=== PATIENT | female | born 1995 | race Caucasian/White ===

== ENCOUNTER 2022-04-12 13:55 | Emergency (ER) | payer OTHER, SELFPAY ==
[2022-04-12 14:06] VITALS: BP 146/84; PULSE 105; RESP 16; TEMP 36.9; O2SAT 98; BMI 26.2
--- NOTE | 2022-04-12 14:46 | ED_ITS ---
HPI - General Time Seen by Provider: 14:46 Date Seen: 04/12/22 Chief complaint: Vaginal Bleeding Stated complaint: 12 wks , bleeding Time Seen by Provider: 04/12/22 14:29 Source: patient and RN notes reviewed Mode of arrival: ambulatory Limitations: no limitations History of Present Illness HPI Narrative: Patient is a 26-year-old female coming in with complaint of vaginal bleeding at approximately 12 weeks of with a twin . She was at her doctor's office earlier today, the bleeding was known then. When she got up from the chair there was blood and the doctor did examiner. She did do a speculum exam and reportedly said there was some blood but the cervix looked fine. Patient had completed amoxicillin yesterday for group B strep and metronidazole today for vaginitis. She has had no vaginal discharge. She has had a little bit of cramping today. She had IUI and use of letrozole for conception. She believes her blood type to be B positive. She reportedly had a transabdominal ultrasound that looked good with her acute care assistant this morning. She had a trickle of blood going down her leg when she was in her doctor's office. Since then she has been passing some clots with going to the bathroom and wiping. Due date is 10/26/2022. She is not experiencing active heavy bleeding. Bleeding just started insidiously at the office. There was no vaginal exam, no recent intercourse. Did use vaginal applicator for the treatment of yeast vaginitis. The urine is what grew group B strep and she was having some dysuria with that which has resolved with treatment with amoxicillin. Patient : Yes Expected Date of Delivery: 10/26/22 Related Data Home Medications Medication Instructions Recorded Confirmed bupropion HCl 300 mg 24 hr tablet, 300 mg PO DAILY 11/16/21 04/12/22 extended release lurasidone 20 mg tablet (Latuda) 20 mg PO QDAY 11/16/21 04/12/22 doxylamine succinate 25 mg tablet 25 mg PO QHS PRN 04/12/22 04/12/22 (Unisom (doxylamine)) vitamin B6-vitamin E-magnesium tab PO 04/12/22 tablet Allergies Allergy/AdvReac Type Severity Reaction Status Date / Time cefdinir Allergy Verified 04/12/22 17:02 Review of Systems Status of ROS: Reports: 10 or more systems reviewed and unremarkable except as noted in History and below PFSH PFSH Medical History Paresthesia Family History Paternal Grandfather Heart disease Maternal Grandfather FH: prostate cancer Diabetes Father High blood pressure Hyperlipidemia Diabetes Social History Smoking Status: Never smoker Exam Const: Vital Signs, click to edit/add: Vital Signs - 24 hr 04/12/22 14:06 04/12/22 16:07 04/12/22 16:08 Temperature 98.4 F Pulse Rate [Pulse Oximeter] 105 H 84 Respiratory Rate 16 16 Blood Pressure [Ri ght Upper Arm] 146/84 H 119/72 Pulse Oximetry 98 100 100 Oxygen Delivery Me thod Room Air Documenting provider has reviewed patient's vital signs: yes Common normals: no apparent distress, average body habitus, oriented x3, no limitations, healthy appearing and alert General appearance: cooperative, comfortable, well kempt and well developed HENMT: Common normals: normocephalic, head/scalp atraumatic and hearing grossly normal bilaterally Head and scalp: normocephalic and atraumatic Eye: Common normals: PERRL, EOMs intact bilaterally, conjunctivae normal and no scleral icterus Conjunctiva: conjunctiva(e) normal Pupil: PERRL Neck & C-Spine: Common normals: full ROM, no lymphadenopathy, supple, no meningeal signs, no JVD and thyroid normal Thyroid: thyroid normal Resp: Common normals: normal respiratory effort, no retractions, no use of accessory muscles and clear to auscultation bilaterally Auscultation: clear to auscultation bilaterally Cardio: Common normals: no JVD, regular rate, regular rhythm, S1 normal heart sound, S2 normal heart sound, no gallops, no clicks and no murmurs Rate: regular rate Rhythm: regular rhythm Heart sounds: S1 normal and S2 normal GI: Common normals: Normal to inspection, nondistended, normoactive bowel sounds present, soft to palpation, non-tender, no hepatosplenomegaly and no masses Palpation: soft and no hepatosplenomegaly : Other: Some dried blood externally but otherwise normal appearing external female genitalia. Dental speculum exam done and see some darkish blood at the introitus. Cervix is visualized, has bluish discoloration of . See a small little about pea size clot at the cervical os. No gross active bleeding. There is scant amount of darker blood in the vault but no pooling of blood. See no discharge otherwise. Neuro: Common normals: oriented x3 Sensorium/orientation: alert Meningeal signs: no meningeal signs Psych: Appearance: well kempt Course Course Hospital Course: We will obtain a limited OB ultrasound again. Obtain basic lab work. Patient will review and make sure blood type is indeed Rh positive. Reevaluation(s) Reevaluation #1: Patient did request Zofran for nausea, has been taking it for this . Did give her 4 mg IV Zofran. Reviewed with her that her ultrasound is showing good findings as far as the twins. There is no reason for bleeding that is visualized. Reviewed labs. Time: 17:08 Consultations Consultation #1: 7 minute conversation with patient's obstetrian at [facility] ([phone]). Had transabdominal US, bleeding started after that. No exams or treatments prior to the bleeding. Did do speculum exam after the bleeding discovered and cervix appeared to have bleeding coming through but not visible source. No risk factors for cervical incompetence other than the twin that she is aware of. Cervix appeared fine there. Likely going to need just expectant management and recommended rest in the interim. Time: 15:47 Vital Signs Vital signs: Initial Vital Signs Temperature 98.4 F 04/12/22 14:06 Temperature Source Temporal Artery Scan 04/12/22 14:06 Pulse Rate 105 H 04/12/22 14:06 Pulse Rhythm 04/12/22 14:06 Pulse Strength 3+ Normal 04/12/22 14:06 Respiratory Rate 16 04/12/22 14:06 Blood Pressure 146/84 H 04/12/22 14:06 Blood Pressure Mean 104 04/12/22 14:06 Pulse Oximetry 98 04/12/22 14:06 Oxygen Delivery Method 04/12/22 14:06 Vital Signs Temperature 98.4 F 04/12/22 14:06 Pulse Rate 105 H 04/12/22 14:06 Respiratory Rate 16 04/12/22 14:06 Blood Pressure 146/84 H 04/12/22 14:06 Pulse Oximetry 98 04/12/22 14:06 Oxygen Delivery Method 04/12/22 14:06 Temperature 98.4 F 04/12/22 14:06 Pulse Rate 84 04/12/22 16:07 Respiratory Rate 16 04/12/22 16:07 Blood Pressure 119/72 04/12/22 16:07 Pulse Oximetry 100 04/12/22 16:08 Oxygen Delivery Method 04/12/22 14:06 MDM - OB/Uterine Contractions Lab Data Attestation: I reviewed the patient's lab results. Labs: Lab Results 04/12/22 04/12/22 Range/Units 15:26 15:26 WBC 12.19 H (4.50-11.00) K/uL RBC 4.58 (4.00-5.20) m/uL Hgb 13.9 (12.0-16.0) gm/dL Hct 40.1 (33.0-51.0) % MCV 88 (80-100) fL MCH 30 (26-34) pg MCHC 35 (32-36) gm/dL RDW Coeff of Bertha 12.4 (11.5-15.5) % Plt Count 366 (140-440) K/uL Neut % (Auto) 79.3 H (42.0-72.0) % Lymph % (Auto) 16.1 L (20-44) % [place] % (Auto) 4.0 (0.0-11.0) % Eos % (Auto) 0.2 (0.0-7.0) % Baso % (Auto) 0.2 (0.0-3.0) % Neut # (Auto) 9.70 H (1.7-7.0) K/uL Lymph # (Auto) 2.00 (0.90-2.90) K/uL [place] # (Auto) 0.50 (0.00-0.90) K/UL Eos # (Auto) 0.00 (0.00-0.50) K/uL Baso # (Auto) 0.00 (0.00-0.30) K/uL Sodium 135 (135-149) mmol/L Potassium 3.8 (3.6-5.1) mmol/L Chloride 107 (96-114) mmol/L Carbon Dioxide 20 (20-32) mmol/L BUN 4 L (5-24) mg/dL Creatinine 0.5 (0.5-1.5) mg/dL Estimated Creat Clear 164.35 Estimated GFR 132 ml/min Glucose 71 (60-115) mg/dL Calcium 9.1 (8.4-10.6) mg/dL HCG, Quant 64721.00 mIU/mL Imaging Data OB ultrasound: Attestation: I have reviewed the pertinent imaging results. My impression: Did visualize her ultrasound images. Will await Radiology over-read. Radiologist's impression: Patient: CORDELIA RAY Facility:?[facility] Patient ID:?[id number] Site Patient ID:?[id number]. Site :?[id number] Study:? OB Pelvis -04/12/2022 3:31:00 PM Ordering Physician:Karen Carreon Final Report: INDICATION: Bleeding with twin gestation. TECHNIQUE: Ultrasound OB pelvis transabdominal and transvaginal. Real-time chawla-scale imaging of the pelvis was performed. COMPARISON: None. FINDINGS: Dichorionic diamniotic twin intrauterine gestation. Embryo A: The embryo demonstrates a regular cardiac rate measuring 169 beats per minute. The embryo`s crown rump length measurement of 5.1 cm corresponds to a gestational age of 11 weeks 6 days with a sonographic due date of 10/26/2022. Embryo B: The embryo demonstrates a regular cardiac rate measuring 173 beats per minute. The embryo`s crown rump length measurement of 5.2 cm corresponds to a gestational age of 11 weeks 6 days with a sonographic due date of 10/26/2022. Normal yolk sac. There is no sign of subchorionic hemorrhage. Normal right ovary. Nonvisualized left ovary. There are no suspicious fluid collections noted in the cul-de-sac. Cervical length: 3.2 cm. IMPRESSION: Live dichorionic diamniotic twin intrauterine gestation, with both fetuses measuring 11 weeks 6 days. No abnormalities seen. Dictated by Saeed Wilson MD @ 04/12/2022 4:30:14 PM (Electronic Signature) Critical Care Time Critical Care Time Critical Care Time: No Discharge Plan Discharge Clinical Impression: Vaginal bleeding in , Twin Condition: Stable Instructions: Threatened Miscarriage (ED) Additional Instructions: Information on threatened miscarriages provided. However, fetus is look quite good on the ultrasound done here. It is recommended that you go home and rest, nothing in the vagina until further advised by your acute care assistant. Recommend calling the acute care assistant office tomorrow and updating them on your symptoms, let them know if you are having ongoing bleeding. If you are still spotting and bleeding tomorrow, would recommend having re-evaluation with them. If you start having brisk her heavy bleeding as outlined in the handout, do need to seek emergent re-evaluation. Activity Level: No strenuous activity Activity Detail: Recommend resting until all bleeding has stopped. Prescriptions: No Action bupropion HCl 300 mg tablet extended release 24 hr 300 mg PO DAILY Label Comments: TAKE 1 TABLET EVERY DAY BY ORAL ROUTE IN THE MORNING. Latuda 20 mg tablet 20 mg PO QDAY Label Comments: TAKE 1 TABLET BY MOUTH DAILY WITH A MEAL vitamin B6-vitamin E-magnesium Tablet PO Unisom (doxylamine) 25 mg tablet 25 mg PO QHS PRN Follow Up/Referrals: Provider,Not a Local [Primary Care Provider] - Stand Alone Forms: [facility] Info Instructions
--- NOTE | 2022-04-12 14:47 | CRLHL7_ITS ---
For Patients: As a result of the Cures Act, medical imaging exams and procedure reports are released immediately into your electronic medical record. You may view this report before your referring provider. If you have questions, please contact your health care provider. INDICATION: Bleeding with twin gestation. TECHNIQUE: Ultrasound OB pelvis transabdominal and transvaginal. Real-time chawla-scale imaging of the pelvis was performed. COMPARISON: None. FINDINGS: Dichorionic diamniotic twin intrauterine gestation. Embryo A: The embryo demonstrates a regular cardiac rate measuring 169 beats per minute. The embryo`s crown rump length measurement of 5.1 cm corresponds to a gestational age of 11 weeks 6 days with a sonographic due date of 10/26/2022. Embryo B: The embryo demonstrates a regular cardiac rate measuring 173 beats per minute. The embryo`s crown rump length measurement of 5.2 cm corresponds to a gestational age of 11 weeks 6 days with a sonographic due date of 10/26/2022. Normal yolk sac. There is no sign of subchorionic hemorrhage. Normal right ovary. Nonvisualized left ovary. There are no suspicious fluid collections noted in the cul-de-sac. Cervical length: 3.2 cm. IMPRESSION: Live dichorionic diamniotic twin intrauterine gestation, with both fetuses measuring 11 weeks 6 days. No abnormalities seen. Dictated by Saeed Wilson MD @ 04/12/2022 4:30:14 PM (Electronically Signed)
--- NOTE | 2022-04-12 15:20 | ED.NURSE ---
patient returned from US and placed on warm blanket.
--- NOTE | 2022-04-12 15:33 | ED.NURSE ---
started saline lock #20 jelco able to draw the labs from the site and sent to lab.
[2022-04-12 15:44] LABS: Basophils Percent Auto 0.2 % (0.0-3.0); Eosinophils Percent Auto 0.2 % (0.0-7.0); Hematocrit 40.1 % (33.0-51.0); Hemoglobin* 13.9 gm/dL (12.0-16.0); Immature Granulocytes Pct Auto 0.2 %; Lymphocytes Percent Auto 16.1 % (20-44); Mean Corpuscular HGB Conc 35 gm/dL (32-36); Mean Corpuscular Hemoglobin 30 pg (26-34); Mean Corpuscular Volume 88 fL (80-100); Neutrophils Percent Auto 79.3 % (42.0-72.0); Platelet Count* 366 K/uL (140-440); RDW Coefficient of Variation % 12.4 % (11.5-15.5); Red Blood Count 4.58 m/uL (4.00-5.20); White Blood Count* 12.19 K/uL (4.50-11.00)
[2022-04-12 15:47] LABS: Slide Review Reflex No
[2022-04-12 15:57] LABS: Chloride* 107 mmol/L (96-114); Potassium* 3.8 mmol/L (3.6-5.1); Sodium* 135 mmol/L (135-149)
[2022-04-12 16:00] LABS: Blood Urea Nitrogen* 4 mg/dL (5-24); Carbon Dioxide* 20 mmol/L (20-32); Creatinine* 0.5 mg/dL (0.5-1.5); Est. Creatinine Clearance* 164.35; Estimated Glomerular Filt Rate 132 ml/min; Glucose* 71 mg/dL (60-115)
[2022-04-12 16:01] LABS: Calcium* 9.1 mg/dL (8.4-10.6)
[2022-04-12 16:07] VITALS: BP 119/72; PULSE 84; RESP 16; O2SAT 100
[2022-04-12 16:08] VITALS: O2SAT 100
[2022-04-12 16:20] VITALS: BP 110/74; PULSE 92; RESP 16; O2SAT 99
[2022-04-12] MEDS: ONDANSETRON 2 MG/ML inj 4 MG IVP (17:08)
== END 2022-04-12 17:31 | disposition home or self-care (01) ==
PROVIDERS: Emergency Provider Family Medicine
DX: O46.91 Antepartum hemorrhage, unspecified, first trimester (principal); O30.001 Twin pregnancy, unspecified number of placenta and unspecified number of amniotic sacs, first trimester; Z3A.12 12 weeks gestation of pregnancy
CPT/HCPCS: 36415; 76801; 76802; 80048; 84702; 85025; 94761; 96374; 99284; J2405

== ENCOUNTER 2023-05-17 05:41 | Emergency (ER) | payer OTHER, SELFPAY ==
[2023-05-17 05:46] VITALS: BP 124/88; PULSE 107; RESP 20; TEMP 36; O2SAT 97; BMI 24.9
--- NOTE | 2023-05-17 06:13 | ED.GENADULT ---
HPI - General Adult General Chief complaint: Shortness of Breath/Dyspnea Stated complaint: shortness of breath Time Seen by Provider: 05/17/23 05:57 Source: patient Mode of arrival: ambulatory Limitations: no limitations History of Present Illness HPI narrative: 27-year-old female presents the emergency department with 36-48 hour history of initially body aches and fever. Fever as high as 102 at home. Nonproductive cough. His shortness of breath is worsening over the past 24 hours, can swallow but feels like it can be difficult to get a deep breath. Throat feels a little swollen. Is having nausea has had a couple episodes of vomiting. No true abdominal pain no. No diarrhea. No trauma or injury. Last took Tylenol about 3 hours prior to presentation, 1000 mg. Last took ibuprofen about 8 hours prior to presentation, 400 mg. Not tolerating solid foods due to the nausea. Has not tried any anti nausea medication. No known sick contacts, no pertinent travel. No dyspnea on exertion or cardiac symptoms. Past medical history notable for depression. Reports use of Wellbutrin and Latuda. Allergy to cefdinir which caused hives per her report. Nonsmoker. ROS notable for the HEENT and GI symptoms as described above. Related Data Home Medications Medication Instructions Recorded Confirmed bupropion HCl 300 mg 24 hr tablet, 300 mg PO DAILY 11/16/21 05/17/23 extended release lurasidone 20 mg tablet (Latuda) 20 mg PO QDAY 11/16/21 05/17/23 Allergies Allergy/AdvReac Type Severity Reaction Status Date / Time cefdinir Allergy Verified 05/17/23 05:46 PFSH PFS Medical History Paresthesia ?R20.2 - Paresthesia of skin (ICD-10) Family History Paternal Grandfather Heart disease Maternal Grandfather FH: prostate cancer Diabetes Father High blood pressure Hyperlipidemia Diabetes Social History Smoking Status: Never smoker Exam Const: Vital Signs, click to edit/add: Vital Signs - 24 hr 05/17/23 05:46 Temperature 96.8 F L Pulse Rate [Pulse Oximeter] 107 H Respiratory Rate 20 Blood Pressure [Ri ght Upper Arm] 124/88 Pulse Oximetry 97 Oxygen Delivery Me thod Room Air Documenting provider has reviewed patient's vital signs: yes Common normals: alert General appearance: cooperative, comfortable and well kempt Other: Great historian, cooperative and friendly. HENMT: Common normals: TM's normal bilaterally Tympanic membrane: TM's normal bilaterally Other: Oropharynx with acyanotic lips. Moist mucous membranes. Tonsillar pillars with a moderate amount of erythema. No swelling to the uvula, tongue or soft palate. No exudate but posterior pharynx does appear quite irritated. She is obviously breathing very comfortably and is swallowing her own secretions with no difficulty. No asymmetry. Eye: Common normals: conjunctivae normal General eye: normal appearance of both eyes Conjunctiva: conjunctiva(e) normal Neck & C-Spine: Other: Moderate anterior cervical and submandibular lymphadenopathy with good range of motion and no meningeal signs. Resp: Common normals: normal respiratory effort, no use of accessory muscles and clear to auscultation bilaterally Effort & inspection: able to speak in complete sentences Auscultation: clear to auscultation bilaterally Cardio: Common normals: regular rate, regular rhythm, S1 normal heart sound, S2 normal heart sound and no murmurs Rate: regular rate Rhythm: regular rhythm Heart sounds: S1 normal and S2 normal Extremity: Common normals: normal capillary refill and no pedal edema Neuro: Sensorium/orientation: alert Speech: speech normal Psych: Appearance: well kempt Attitude: engaged Activity/motor behavior: appropriate eye contact Insight: insight good Judgement: judgment good Skin: Common normals: no rashes or lesions noted General skin exam: no rashes or lesions noted Course Course ED Course: Influenza like illness with sore throat, body aches, nausea. We are seeing lots of influenza B locally. Swabs are pending for influenza, RSV, COVID and strep. Does not appear clinically dehydrated at this point. Would like to do a trial of oral Zofran and Toradol and then see if she can tolerate liquids after that. Await viral swabs. Reevaluation(s) Time of Reevaluation #1: 07:11 Reevaluation #1: Discussed lab findings with patient. She is feeling much better after the Zofran and has tolerated a glass of water here in the ED. The Toradol seems to be helping as well. We discussed symptom management. Will prescribed Toradol and Zofran for her to have at home. Likely influenza even though the swabs are negative, discussed the limitations of the swabs with her. We decided against Tamiflu even if she were positive therefore further testing will not be beneficial. Since she is able to tolerate liquids with the Zofran, I am confident that she can prevent dehydration and care for herself appropriately at home. Counseled on Tylenol as well for symptom control and alarm symptoms. She verbalizes understanding and agreement, see discharge instructions. Vital Signs Vital signs: Initial Vital Signs Temperature 96.8 F L 05/17/23 05:46 Temperature Source Temporal Artery Scan 05/17/23 05:46 Pulse Rate 107 H 05/17/23 05:46 Pulse Strength 3+ Normal 05/17/23 05:46 Respiratory Rate 20 05/17/23 05:46 Blood Pressure 124/88 05/17/23 05:46 Blood Pressure Mean 100 05/17/23 05:46 Pulse Oximetry 97 05/17/23 05:46 Oxygen Delivery Method Room Air 05/17/23 05:46 Vital Signs Temperature 96.8 F L 05/17/23 05:46 Pulse Rate 107 H 05/17/23 05:46 Respiratory Rate 20 05/17/23 05:46 Blood Pressure 124/88 05/17/23 05:46 Pulse Oximetry 97 05/17/23 05:46 Oxygen Delivery Method Room Air 05/17/23 05:46 Temperature 96.8 F L 05/17/23 05:46 Pulse Rate 107 H 05/17/23 05:46 Respiratory Rate 20 05/17/23 05:46 Blood Pressure 124/88 05/17/23 05:46 Pulse Oximetry 97 05/17/23 05:46 Oxygen Delivery Method Room Air 05/17/23 05:46 Medications Administered Medications: Discontinued Medications Generic Name Dose Route Start Last Admin Trade Name Freq PRN Reason Stop Dose Admin Ketorolac Tromethamine 10 mg 05/17/23 06:12 05/17/23 06:51 Ketorolac 10 Mg Tablet PO 05/17/23 06:13 10 mg ONCE ONE Administration Ondansetron HCl 4 mg 05/17/23 06:12 05/17/23 06:17 Ondansetron Odt 4 Mg Tab PO 05/17/23 06:13 4 mg ONCE ONE Administration Medical Decision Making Lab Data Lab results reviewed: Yes I reviewed the patient's lab results Lab results narrative: Labs negative, limitations discussed with patient Labs: Lab Results 05/17/23 Range/Units 05:53 SARS-CoV-2 (PCR) Negative SARS-CoV-2 (Negative) Influenza Type A (PCR) Negative PCR FLU A (Negative) Influenza Type B (PCR) Negative PCR FLU B (Negative) RSV (PCR) Negative PCR RSV (Negative) Group A Strep DNA NOT DETECTED (Not Detectd) Discharge Plan Discharge Clinical Impression: Influenza-like illness Patient Disposition: Home, Self-Care Condition: Improved Instructions: Influenza (DC) Additional Instructions: As we discussed, your swabs are negative for strep and influenza. The strep test is quite accurate but the influenza can give false negatives. We are still seeing quite a bit of influenza B circulating in the community. This is most likely the culprit of your symptoms but could be another similar virus. The treatment would be the same either way. I recommend Tylenol 1000 mg every 6 hours as needed. I will give a prescription for Toradol which is anti-inflammatory medicine that your given here in the ED as well. Take 1 tablet every 6 hours, your next eligible dose is about 12 30. You could repeat your Tylenol at about 8:00 a.m.. I will also give a prescription for anti nausea medicine, Zofran also known as ondansetron. You would be due for another dose of this as early as noon. It may be taken up to every 6 hours. Definitely take it at least every 8 hours for the next 24 hours, then decrease to as needed. Push fluids, solid foods will come within a few days. If you have severe shortness of breath, chest pain, are unable to hold down any liquids for over 24 hours even with medications, you should come back to the emergency room. Activity Level: Activity as Tolerated Discharge Diet: Regular Prescriptions: No Action bupropion HCl 300 mg tablet extended release 24 hr 300 mg PO DAILY Patient Comments: TAKE 1 TABLET EVERY DAY BY ORAL ROUTE IN THE MORNING. Latuda 20 mg tablet 20 mg PO QDAY Patient Comments: TAKE 1 TABLET BY MOUTH DAILY WITH A MEAL Follow Up/Referrals: Provider,Not a Local [Primary Care Provider] - Stand Alone Forms: [employer] Info Instructions
[2023-05-17] MEDS: ONDANSETRON ODT 4 MG TAB PO (06:17)
[2023-05-17 06:27] LABS: Strep A DNA Probe* NOT DETECTED (Not Detectd)
[2023-05-17 06:41] LABS: PCR FLU A Negative PCR FLU A (Negative); PCR FLU B Negative PCR FLU B (Negative); PCR RSV Negative PCR RSV (Negative); SARS PCR* Negative SARS-CoV-2 (Negative)
[2023-05-17] MEDS: KETOROLAC 10 MG TABLET PO (06:51)
== END 2023-05-17 07:21 | disposition home or self-care (01) ==
PROVIDERS: Emergency Provider Family Medicine
DX: J10.1 Influenza due to other identified influenza virus with other respiratory manifestations (principal)
CPT/HCPCS: 87631; 87651; 99283; A9270

== ENCOUNTER 2024-01-31 03:51 | Emergency (ER) | payer OTHER, SELFPAY ==
[2024-01-31 03:57] VITALS: BP 122/87; PULSE 63; RESP 16; TEMP 36.1; O2SAT 100; BMI 24.7
--- NOTE | 2024-01-31 04:04 | ED_ITS ---
HPI - General Chief complaint: Vaginal Bleeding Stated complaint: 4 weeks , cramping Time Seen by Provider: 01/31/24 04:02 History of Present Illness HPI Narrative: Patient is a 28-year-old woman who has been 3 times. She has a single it and a set of twins and recently found out that she is approximately 4 weeks . She presents tonight with spontaneous bleeding from her vagina. She is bleeding proximally pad every 2-3 hours. She is not passing any clots and has not passed any solid material. She has crampy lower abdominal pain but no fevers no chills no night sweats no cough no change in her bowel or bladder. No other complaints. Pain is 410. Related Data Home Medications ?Medication ?Instructions ?Recorded ?Confirmed bupropion HCl 300 mg 24 hr tablet, 300 mg PO DAILY 11/16/21 05/17/23 extended release lurasidone 20 mg tablet (Latuda) 20 mg PO QDAY 11/16/21 05/17/23 Allergies Allergy/AdvReac Type Severity Reaction Status Date / Time cefdinir Allergy Verified 05/17/23 05:46 Review of Systems Status of ROS: Reports: 10 or more systems reviewed and unremarkable except as noted in History and below PFSH PFS Medical History Paresthesia ?R20.2 - Paresthesia of skin (ICD-10) Family History Paternal Grandfather Heart disease Maternal Grandfather FH: prostate cancer Diabetes Father High blood pressure Hyperlipidemia Diabetes Social History Smoking Status: Never smoker Do you use any of these nicotine containing products: None How often do you have a drink containing alcohol: never AUDIT-C Alcohol total score: 0 Non-prescribed substance use: denies use Exam Narrative: Exam Narrative: EXAM GENERAL: Patient appears comfortable and well. EYES: No scleral icterus. ENT: Tympanic membranes and oropharynx normal. THYROID: no thyroid nodules or thyromegaly. LYMPH: No supraclavicular or cervical lymphadenopathy. SKIN: Visible skin seen during exam normal or with benign process only. EXT: No dependent lower extremity pedal edema. HEART: Regular rate and rhythm with no murmurs, rubs, or gallops. LUNGS: Clear to auscultation bilaterally with no crackles or wheezes. ABD: Soft, non tender, non distended. PSYCH: Good eye contact, speech is not pressured. Const: Vital Signs, click to edit/add: Vital Signs - 24 hr 01/31/24 03:57 Temperature 97 F L Pulse Rate [Pulse Oximeter] 63 Respiratory Rate 16 Blood Pressure [Ri ght Upper Arm] 122/87 Pulse Oximetry 100 Oxygen Delivery Me thod Room Air Course Course ED Course: Patient seen and examined. CBC basic metabolic panel ABO Rh type and quantitative hCG is pending. Vital Signs Vital signs: Initial Vital Signs Temperature 97 F L 01/31/24 03:57 Temperature Source Temporal Artery Scan 01/31/24 03:57 Pulse Rate 63 01/31/24 03:57 Respiratory Rate 16 01/31/24 03:57 Blood Pressure 122/87 01/31/24 03:57 Blood Pressure Mean 98 01/31/24 03:57 Blood Pressure Position Supine 01/31/24 03:57 Pulse Oximetry 100 01/31/24 03:57 Oxygen Delivery Method Room Air 01/31/24 03:57 Vital Signs Temperature 97 F L 01/31/24 03:57 Pulse Rate 63 01/31/24 03:57 Respiratory Rate 16 01/31/24 03:57 Blood Pressure 122/87 01/31/24 03:57 Pulse Oximetry 100 01/31/24 03:57 Oxygen Delivery Method Room Air 01/31/24 03:57 Temperature 97 F L 01/31/24 03:57 Pulse Rate 63 01/31/24 03:57 Respiratory Rate 16 01/31/24 03:57 Blood Pressure 122/87 01/31/24 03:57 Pulse Oximetry 100 01/31/24 03:57 Oxygen Delivery Method Room Air 01/31/24 03:57 MDM - OB/Uterine Contractions MDM Narrative Medical decision making narrative: Patient is a 28-year-old 3 para 3 woman with set of twins who comes in approximately 4 weeks with vaginal bleeding. She is bleeding approximately a pad every 3-4 hours. Quantitative hCG i 8.3. CBC electrolytes stable. She is B-positive blood type. She is hemodynamically stable with a normal exam. We did discuss ultrasound but I do not believe a given its timing would be appropriate to order an ultrasound overnight tonight. I did recommend outpatient follow-up. She will continue current care report any fevers or worsening abdominal pain in the interim. Lab Data Labs: Lab Results 01/31/24 Range/Units 04:14 WBC 8.25 (4.50-11.00) K/uL RBC 4.65 (4.00-5.20) m/uL Hgb 13.7 (12.0-16.0) gm/dL Hct 40.7 (33.0-51.0) % MCV 88 (80-100) fL MCH 30 (26-34) pg MCHC 34 (32-36) gm/dL RDW Coeff of Bertha 11.7 (11.5-15.5) % Plt Count 352 (140-440) K/uL Neut % (Auto) 65.7 (42.0-72.0) % Lymph % (Auto) 25.7 (20-44) % [place] % (Auto) 6.2 (0.0-11.0) % Eos % (Auto) 1.2 (0.0-7.0) % Baso % (Auto) 0.5 (0.0-3.0) % Neut # (Auto) 5.42 (1.7-7.0) K/uL Lymph # (Auto) 2.12 (0.90-2.90) K/uL [place] # (Auto) 0.50 (0.00-0.90) K/UL Eos # (Auto) 0.10 (0.00-0.50) K/uL Baso # (Auto) 0.04 (0.00-0.30) K/uL Abs Immat Gran (auto) 0.06 (0.00-0.30) K/uL Imm/Tot Granulo (auto) 0.7 % Sodium 137 (135-149) mmol/L Potassium 4.1 (3.6-5.1) mmol/L Chloride 106 (96-114) mmol/L Carbon Dioxide 24 (20-32) mmol/L Anion Gap 7 (7-15) mEq/L BUN 12 (5-24) mg/dL Creatinine 0.8 (0.5-1.5) mg/dL Estimated Creat Clear 100.90 Estimated GFR 102 ml/min Glucose 97 (60-115) mg/dL Calcium 8.9 (8.4-10.6) mg/dL HCG, Quant 8.30 mIU/mL Blood Type B Positive Discharge Plan Discharge Clinical Impression: Vaginal bleeding before 22 weeks gestation Additional Instructions: Tylenol Warm packs Monitor bleeding for worsening Monitor for worsening abdominal pain Follow-up with your doctor next 2-3 days. Activity Level: No Restrictions Discharge Diet: Regular Prescriptions: No Action bupropion HCl 300 mg tablet extended release 24 hr 300 mg PO DAILY Patient Comments: TAKE 1 TABLET EVERY DAY BY ORAL ROUTE IN THE MORNING. Latuda 20 mg tablet 20 mg PO QDAY Patient Comments: TAKE 1 TABLET BY MOUTH DAILY WITH A MEAL Follow Up/Referrals: Provider,Not a Local [Primary Care Provider] -
--- OUTSIDE RECORDS SUMMARY | 2024-01-31 04:11 | XMS_ITS | Encounter Summary ---
Author Organization [facility] Address [address] [place] [address] Care Team Providers Care Grocery Manager Name Role Phone No Primary/Referring, Phy Primary Care Provider Unavailable Encounter Details Date Type Department Care Team (Latest Contact Info) Description 11/05/1996 Office Visit Shaun Meeks MD [address] [place] [address] Social History Tobacco Use Types Packs/Day Years Used Date Smoking Tobacco: Never Assessed Sex and Gender Information Value Date Recorded Sex Assigned at Not on file Gender Identity Not on file Sexual Orientation Not on file documented as of this encounter Progress Notes * Shaun Meeks - 11/05/1996 12:00 AM CDTS: Isabela is a 23 month female presenting with decrease in energy and borderline fever recently. Medications none. Allergies none. O: Physical Exam: General--No apparent distress. Normal level of activity. HEENT: Head--atraumatic, normocephalic. Eyes--PERRL, EOM's intact, conjunctiva clear bilaterally. Ears--TM's clear, LR intact bilaterally. Nose--clear mucous discharge. Pharynx--benign. Lymphs--shotty anterior cervical. Neck--supple. Chest--clear. Abdomen--soft, benign. A: Viral illness P: No further treatment indicated at present. cc: documented in this encounter Plan of Treatment Not on file documented as of this encounter Visit Diagnoses Not on filedocumented in this encounter Additional Health Concerns Infection Onset Date Last Indicated Resolved Time R/O COVID19 02/17/2020 02/17/2020 02/19/2020 7:53 AM JOURNEYMAN PLUMBER documented as of this encounter Care Teams Grocery Manager Relationship Specialty Start Date End Date No Primary/Referring, Phy PCP - General 03/25/20 documented as of this encounter
--- OUTSIDE RECORDS SUMMARY | 2024-01-31 04:11 | XMS_ITS | Encounter Summary ---
Author Organization [facility] Address [address] [place] [address] Care Team Providers Care Fabric Pattern Grader Name Role Phone No Primary/Referring, Phy Primary Care Provider Unavailable Encounter Details Date Type Department Care Team (Latest Contact Info) Description 12/15/1996 Office Visit Shaun Meeks MD [address] [place], [place] [id number] Social History Tobacco Use Types Packs/Day Years Used Date Smoking Tobacco: Never Assessed Sex and Gender Information Value Date Recorded Sex Assigned at Not on file Gender Identity Not on file Sexual Orientation Not on file documented as of this encounter Progress Notes * Shaun Meeks - 12/15/1996 12:00 AM CDTS: This is a 1-year-old female presenting with one day complaint of waking at night associated with earache and fever to 100. Patient has a history of myringotomy in tubes in the past. She has experienced a one week history of clear watery nasal discharge and slight cough in the mornings. Other family members are asymptomatic. Mother also noted that Isabela has developed a faint oval, lightly desquamated lesion on her left side. She uses [employer] soap. Medications: Tylenol Cold plus Benadryl for a mosquito bite. Allergies: None noted. O: Physical Exam: General--No apparent distress. HEENT: Head--atraumatic, normocephalic. Eyes--PERRL, EOMs intact, conjunctiva clear bilaterally. Ears--Right TM clear, light reflex intact. Left TM dull, erythematous. Nose--clear. Pharynx--benign. Lymph--shotty anterior cervical. Neck--supple. Chest--clear. Abdomen--soft, benign. A: Left otitis media, upper respiratory infection. P: Rx: Augmentin 1 tsp po q 12 for a ten day course. Reassess three to four weeks. Topical 1% hydrocortisone to be applied on very faint oval macular lesion on the trunk. cc: documented in this encounter Plan of Treatment Not on file documented as of this encounter Visit Diagnoses Not on filedocumented in this encounter Additional Health Concerns Infection Onset Date Last Indicated Resolved Time R/O COVID19 02/17/2020 02/17/2020 02/19/2020 7:53 AM VERIFICATION ENGINEER documented as of this encounter Care Teams Fabric Pattern Grader Relationship Specialty Start Date End Date No Primary/Referring, Phy PCP - General 03/25/20 documented as of this encounter
--- OUTSIDE RECORDS SUMMARY | 2024-01-31 04:11 | XMS_ITS | Encounter Summary ---
Author Organization [facility] Address [address] [place] [address] Care Team Providers Care Packaging Sales Consultant Name Role Phone No Primary/Referring, Phy Primary Care Provider Unavailable Encounter Details Date Type Department Care Team (Latest Contact Info) Description 06/22/1996 Office Visit Deborah Rivera MD [address] [place] [address] Social History Tobacco Use Types Packs/Day Years Used Date Smoking Tobacco: Never Assessed Sex and Gender Information Value Date Recorded Sex Assigned at Not on file Gender Identity Not on file Sexual Orientation Not on file documented as of this encounter Progress Notes * Deborah Lay - 06/22/1996 12:00 AM CDTS: Isabela is here because of a fever that began last night. She has had mild cold symptoms. No other problems. O: Right TM is normal. Left TM is red and PE tube appears to be out. Heart and lungs are clear. A: Otitis Media P: Augmentin 200mg 3/4 tsp. bid X 10 days. Recheck back in between 2-3 weeks. Briefly discussed whether or not to replace PE tubes at this point and we will wait to see how this infection clears. Might elect to follow closely at this point rather than replacing the tubes. cc: documented in this encounter Plan of Treatment Not on file documented as of this encounter Visit Diagnoses Not on filedocumented in this encounter Additional Health Concerns Infection Onset Date Last Indicated Resolved Time R/O COVID19 02/17/2020 02/17/2020 02/19/2020 7:53 AM BATTERY WRECKER OPERATOR documented as of this encounter Care Teams Packaging Sales Consultant Relationship Specialty Start Date End Date No Primary/Referring, Phy PCP - General 03/25/20 documented as of this encounter
--- OUTSIDE RECORDS SUMMARY | 2024-01-31 04:11 | XMS_ITS | Encounter Summary ---
Author Organization [facility] Address [address] [place] [address] Care Team Providers Care Pressure Vessel Inspector Name Role Phone No Primary/Referring, Phy Primary Care Provider Unavailable Encounter Details Date Type Department Care Team (Latest Contact Info) Description 02/22/1997 Office Visit Deborah Rivera MD [address] [place] [address] Social History Tobacco Use Types Packs/Day Years Used Date Smoking Tobacco: Never Assessed Sex and Gender Information Value Date Recorded Sex Assigned at Not on file Gender Identity Not on file Sexual Orientation Not on file documented as of this encounter Progress Notes * Deborah Lay - 02/22/1997 12:00 AM CSTS: Isabela is here to have her ear rechecked. She has completed her medication. She had some trouble with diaper rash while taking the Augmentin. Her parent's report things have been going very well otherwise. O: Alert, active, not-ill appearing. The right TM continues normal. The left TM shows a very small crescent of fluid otherwise is normal in color. A: Resolving serous otitis P: At this point, will d/c the antibiotics. Will continue to follow routinely. cc: OR ENERGY TRADER documented in this encounter Plan of Treatment Not on file documented as of this encounter Visit Diagnoses Not on filedocumented in this encounter Additional Health Concerns Infection Onset Date Last Indicated Resolved Time R/O COVID19 02/17/2020 02/17/2020 02/19/2020 7:53 AM SENIOR ENERGY TRADER documented as of this encounter Care Teams Pressure Vessel Inspector Relationship Specialty Start Date End Date No Primary/Referring, Charliy PCP - General 03/25/20 documented as of this encounter
--- OUTSIDE RECORDS SUMMARY | 2024-01-31 04:11 | XMS_ITS | Encounter Summary ---
Author Organization [facility] Address [address] [place] [address] Care Team Providers Care Loom Fixer Name Role Phone No Primary/Referring, Phy Primary Care Provider Unavailable Encounter Details Date Type Department Care Team (Latest Contact Info) Description 09/09/1996 Office Visit Deborah Rivera MD [address] [facility] [place] [address] Social History Tobacco Use Types Packs/Day Years Used Date Smoking Tobacco: Never Assessed Sex and Gender Information Value Date Recorded Sex Assigned at Not on file Gender Identity Not on file Sexual Orientation Not on file documented as of this encounter Progress Notes * Deborah Lay - 09/09/1996 12:00 AM CDTS: Isabela is here because of a fever last night of approximately 103. She has had mild cold symptoms in the last couple of days but no fever before last night. Other family members have also been ill with a mild illness. No other exposures. O: Both tympanic membranes are normal. Throat is slightly red, no exudate. Some nasal congestion. Lungs clear. A: Viral syndrome. P: Symptomatic therapy. Recheck as needed. cc: documented in this encounter Plan of Treatment Not on file documented as of this encounter Visit Diagnoses Not on filedocumented in this encounter Additional Health Concerns Infection Onset Date Last Indicated Resolved Time R/O COVID19 02/17/2020 02/17/2020 02/19/2020 7:53 AM GRINDER OUTSIDE DIAMETER documented as of this encounter Care Teams Loom Fixer Relationship Specialty Start Date End Date No Primary/Referring, Phy PCP - General 03/25/20 documented as of this encounter
--- OUTSIDE RECORDS SUMMARY | 2024-01-31 04:11 | XMS_ITS | Encounter Summary ---
Author Organization [facility] Address [address] [place] [address] Care Team Providers Care Biotechnologist Name Role Phone No Primary/Referring, Phy Primary Care Provider Unavailable Encounter Details Date Type Department Care Team (Latest Contact Info) Description 12/13/1995 Orders Only Shaun Meeks MD [address] [place], [place] [id number] Social History Tobacco Use Types Packs/Day Years Used Date Smoking Tobacco: Never Assessed Sex and Gender Information Value Date Recorded Sex Assigned at Not on file Gender Identity Not on file Sexual Orientation Not on file documented as of this encounter Plan of Treatment Not on file documented as of this encounter Visit Diagnoses Not on filedocumented in this encounter Additional Health Concerns Infection Onset Date Last Indicated Resolved Time R/O COVID19 02/17/2020 02/17/2020 02/19/2020 7:53 AM CRUSHING FOREMAN documented as of this encounter Care Teams Biotechnologist Relationship Specialty Start Date End Date No Primary/Referring, Phy PCP - General 03/25/20 documented as of this encounter
--- OUTSIDE RECORDS SUMMARY | 2024-01-31 04:11 | XMS_ITS | Encounter Summary ---
Author Organization [facility] Address [address] [place] [address] Care Team Providers Care Community Coordinator For [employer] Name Role Phone No Primary/Referring, Phy Primary Care Provider Unavailable Encounter Details Date Type Department Care Team (Latest Contact Info) Description 03/30/1996 Office Visit Deborah Rivera MD [address] [facility] [place] [address] Social History Tobacco Use Types Packs/Day Years Used Date Smoking Tobacco: Never Assessed Sex and Gender Information Value Date Recorded Sex Assigned at Not on file Gender Identity Not on file Sexual Orientation Not on file documented as of this encounter Progress Notes * Deborah Lay - 03/30/1996 12:00 AM CSTS: Isabela is here because of low grade fever under 100.5 for the last two days, though this morning her temperature was 99. Her appetite has been down, no vomiting or diarrhea. Has developed cold symptoms with runny nose and cough at night. O: Both tympanic membranes are normal with PE tubes in place. Throat clear. Lungs clear. A: Upper respiratory infection. P: Symptomatic therapy. Recheck as needed. cc: RERS HELPER documented in this encounter Plan of Treatment Not on file documented as of this encounter Visit Diagnoses Not on filedocumented in this encounter Additional Health Concerns Infection Onset Date Last Indicated Resolved Time R/O COVID19 02/17/2020 02/17/2020 02/19/2020 7:53 AM CATERERS HELPER documented as of this encounter Care Teams Community Coordinator [employer] Relationship Specialty Start Date End Date No Primary/Referring, Phy PCP - General 03/25/20 documented as of this encounter
--- OUTSIDE RECORDS SUMMARY | 2024-01-31 04:11 | XMS_ITS | Encounter Summary ---
Author Organization [facility] Address [address] [place] [address] Care Team Providers Care Restorer Paper And Prints Name Role Phone No Primary/Referring, Phy Primary Care Provider Unavailable Encounter Details Date Type Department Care Team (Latest Contact Info) Description 07/13/1996 Office Visit Deborah Rivera MD [address] [place] [address] Social History Tobacco Use Types Packs/Day Years Used Date Smoking Tobacco: Never Assessed Sex and Gender Information Value Date Recorded Sex Assigned at Not on file Gender Identity Not on file Sexual Orientation Not on file documented as of this encounter Progress Notes * Deborah Lay - 07/13/1996 12:00 AM CDTS: Isabela is here to have her ear rechecked. Her mother reports that is going well. She does have a diaper rash that has been a problem. They have been using some Miconazole on it with some improvement. O: Both TMs are normal. The diaper area shows a typical candidal type infection with some minimal excoriation on the left buttock. A: 1) Resolved otitis media. 2) Candidal diaper dermatitis. P: Miconazole/hydrocortisone mixture to be used after each diaper change. Would expect this would begin to improve now that she is off the antibiotics. Symptomatic care also discussed. cc: documented in this encounter Plan of Treatment Not on file documented as of this encounter Visit Diagnoses Not on filedocumented in this encounter Additional Health Concerns Infection Onset Date Last Indicated Resolved Time R/O COVID19 02/17/2020 02/17/2020 02/19/2020 7:53 AM CERTIFIED PHARMACIST ASSISTANT documented as of this encounter Care Teams Restorer Paper And Prints Relationship Specialty Start Date End Date No Primary/Referring, Phy PCP - General 03/25/20 documented as of this encounter
--- OUTSIDE RECORDS SUMMARY | 2024-01-31 04:11 | XMS_ITS | Encounter Summary ---
Author Organization [facility] Address [address] [place] [address] Care Team Providers Care Public Affairs Director Name Role Phone No Primary/Referring, Phy Primary Care Provider Unavailable Encounter Details Date Type Department Care Team (Latest Contact Info) Description 01/04/1997 Office Visit Deborah Rivera MD [address] [facility] [place] [address] Social History Tobacco Use Types Packs/Day Years Used Date Smoking Tobacco: Never Assessed Sex and Gender Information Value Date Recorded Sex Assigned at Not on file Gender Identity Not on file Sexual Orientation Not on file documented as of this encounter Progress Notes * Deborah Lay - 01/04/1997 12:00 AM CSTS: Isabela is here because of persistence of her cold symptoms. She completed medication for a left otitis approximately four to five days and seemed to be doing better at that time, but was not totally back to normal. The cough seems to have increased in the last two to three days as has the nasal congestion. She has not had any fever, has been pretty happy. O: An alert, active, cooperative young lady. The left tympanic membrane continues to be reddened. There is some thickening of the membrane. Right ear is normal. Throat clear. Lungs clear. A: Persistent otitis media. P: Will change to Vantin 50 BID for ten days. Recheck again in two weeks, sooner with any new symptoms. cc: RVISOR CONCRETE STONE FABRICATING documented in this encounter Plan of Treatment Not on file documented as of this encounter Visit Diagnoses Not on filedocumented in this encounter Additional Health Concerns Infection Onset Date Last Indicated Resolved Time R/O COVID19 02/17/2020 02/17/2020 02/19/2020 7:53 AM SUPERVISOR CONCRETE STONE FABRICATING documented as of this encounter Care Teams Public Affairs Director Relationship Specialty Start Date End Date No Primary/Referring, Phy PCP - General 03/25/20 documented as of this encounter
--- OUTSIDE RECORDS SUMMARY | 2024-01-31 04:11 | XMS_ITS | Encounter Summary ---
Author Organization [facility] Address [address] [place] [address] Care Team Providers Care Environmental Programs Specialist Name Role Phone No Primary/Referring, Phy Primary Care Provider Unavailable Encounter Details Date Type Department Care Team (Latest Contact Info) Description 01/18/1997 Office Visit Deborah Rivera MD [address] [place] [address] Social History Tobacco Use Types Packs/Day Years Used Date Smoking Tobacco: Never Assessed Sex and Gender Information Value Date Recorded Sex Assigned at Not on file Gender Identity Not on file Sexual Orientation Not on file documented as of this encounter Progress Notes * Deborah Lay - 01/18/1997 12:00 AM CSTS: Isabela is here to have her ears rechecked. She has completed her medication. Her dad comes with her and says that she has been rubbing on her ear occasionally, but otherwise has seemed back to normal. O: The left tympanic membrane shows a fluid level, but is otherwise clear. There is no redness. The right tympanic membrane is normal. A: Resolved acute otitis media with persistent fluid. P: Because of Isabela's recurrent problems with otitis media, recommended placing her on prophylactic antibiotic. Will use Amoxicillin 250 q day for the next month. Recheck again at that time. cc: UIT REAMER OPERATOR documented in this encounter Plan of Treatment Not on file documented as of this encounter Visit Diagnoses Not on filedocumented in this encounter Additional Health Concerns Infection Onset Date Last Indicated Resolved Time R/O COVID19 02/17/2020 02/17/2020 02/19/2020 7:53 AM CONDUIT REAMER OPERATOR documented as of this encounter Care Teams Environmental Programs Specialist Relationship Specialty Start Date End Date No Primary/Referring, Phy PCP - General 03/25/20 documented as of this encounter
--- OUTSIDE RECORDS SUMMARY | 2024-01-31 04:11 | XMS_ITS | Encounter Summary ---
Author Organization [facility] Address [address] [place] [address] Care Team Providers Care Partner Cco Name Role Phone No Primary/Referring, Phy Primary Care Provider Unavailable Encounter Details Date Type Department Care Team (Latest Contact Info) Description 05/25/1996 Office Visit Deborah Rivera MD [address] [place] [address] Social History Tobacco Use Types Packs/Day Years Used Date Smoking Tobacco: Never Assessed Sex and Gender Information Value Date Recorded Sex Assigned at Not on file Gender Identity Not on file Sexual Orientation Not on file documented as of this encounter Progress Notes * Deborah Lay - 05/25/1996 12:00 AM CSTS: Isabela is here because of diarrhea that has been present for five days. She initially was having two to five loose stools per day that were very watery. Currently she is having watery stools alternating with somewhat pasty stools, has had two today. She has been drinking well. Appetite has been down somewhat though she is currently eating some crackers. O: Alert, active, playful child. Ears are normal. Throat clear. Lungs clear. Abdominal exam is normal. A: Viral gastroenteritis, improving. P: Continue with the dietary therapy. Will check back by phone in a couple of days to see how things are going. If persisting to have diarrhea longer than one week would consider doing testing for parasites. cc: RNMENT AFFAIRS SPECIALIST documented in this encounter Plan of Treatment Not on file documented as of this encounter Visit Diagnoses Not on filedocumented in this encounter Additional Health Concerns Infection Onset Date Last Indicated Resolved Time R/O COVID19 02/17/2020 02/17/2020 02/19/2020 7:53 AM GOVERNMENT AFFAIRS SPECIALIST documented as of this encounter Care Teams Partner Cco Relationship Specialty Start Date End Date No Primary/Referring, Phy PCP - General 03/25/20 documented as of this encounter
--- OUTSIDE RECORDS SUMMARY | 2024-01-31 04:11 | XMS_ITS | Encounter Summary ---
Author Organization [facility] Address [address] [place] [address] Care Team Providers Care Planning Technician Name Role Phone No Primary/Referring, Phy Primary Care Provider Unavailable Encounter Details Date Type Department Care Team (Latest Contact Info) Description 01/17/1998 Orders Only Deborah Rivera MD [address] [place], [place] [address] Social History Tobacco Use Types Packs/Day Years [...] R/O COVID19 02/17/2020 02/17/2020 02/19/2020 7:53 AM MINESWEEPING OFFICER documented as of this encounter Care Teams Planning Technician Relationship Specialty Start Date End Date No Primary/Referring, Phy PCP - General 03/25/20 documented as of this encounter
--- OUTSIDE RECORDS SUMMARY | 2024-01-31 04:11 | XMS_ITS | Encounter Summary ---
Author Organization [facility] Address [address] [place] [address] Care Team Providers Care Dynamics Ax Technical Architect Name Role Phone No Primary/Referring, Phy Primary Care Provider Unavailable Encounter Details Date Type Department Care Team (Latest Contact Info) Description 07/13/1996 Orders Only Deborah Rivera MD [address] [place], [place] [address] Social History Tobacco Use Types Packs/Day Years [...] R/O COVID19 02/17/2020 02/17/2020 02/19/2020 7:53 AM TICKET CLERK documented as of this encounter Care Teams Dynamics Ax Technical Architect Relationship Specialty Start Date End Date No Primary/Referring, Phy PCP - General 03/25/20 documented as of this encounter
--- OUTSIDE RECORDS SUMMARY | 2024-01-31 04:11 | XMS_ITS | Clinical Summary ---
Author Organization [place] Address [facility] [place] [address] Care Team Providers Care Burnisher And Bumper Name Role Phone Dragan Starks MD Primary Care Provider [phone] ProviderDu MD Unavailable Unavailable Allergies Active Allergy Reactions Criticality Noted Date Comments Cephalosporins Hives High 12/14/2015 Medications Multiple Vitamins-[place] als (MULTIVITAMIN WOMEN) TABS Take 2 tablets by mouth At Bedtime Active ibuprofen (ADVIL/MOTRIN) 600 MG tablet Take 600 mg by mouth every 6 hours as needed for moderate pain Active sertraline (ZOLOFT) 50 MG tablet Take 1 tablet (50 mg) by mouth daily 03/09/20 20 Active melatonin 1 MG TABS tablet Take 1 tablet (1 mg) by mouth nightly as needed for sleep 03/08/20 20 Active ondansetron (ZOFRAN) 4 MG tabletIndicati ons:Nausea Take 1 tablet (4 mg) by mouth every 6 hours as needed for nausea or vomiting 30 tablet 03/18/19 21 Active Additional Information Patient not taking.Reported on 09/12/2023 risperiDONE (RISPERDAL) 2 MG tabletIndicati ons: psychosis (H) Take 1 tablet (2 mg) by mouth At Bedtime 30 tablet 03/18/19 21 Active LORazepam (ATIVAN) 0.5 MG tabletIndicati ons:Anxiety Take 1 tablet (0.5 mg) by mouth every 6 hours as needed for anxiety, nausea, vomiting, agitation or sleep 30 tablet 03/18/19 21 Active Additional Information Patient not taking.Reported on 09/12/2023 traMADol (ULTRAM) 50 MG tabletIndicati ons: pain Take 1 tablet (50 mg) by mouth every 6 hours as needed for moderate pain or severe pain 30 tablet 03/18/19 21 Active Additional Information Patient not taking.Reported on 09/12/2023 lurasidone (LATUDA) 60 MG TABS tablet Take 60 mg by mouth At Bedtime Active buPROPion (WELLBUTRIN XL) 150 MG 24 hr tablet Take 150 mg by mouth every morning Active lithium ER (LITHOBID) 300 MG CR tabletIndicati ons: psychosis (H) Take 1 tablet (300 mg) by mouth every 12 hours 60 tablet 03/21/19 21 021 Discontinued Active Problems Problem Noted Date Diagnosed Date Other chronic postprocedural pain 03/18/2020 pain 03/18/2020 Nausea 03/18/2020 psychosis 03/10/2020 Anxiety 03/08/2020 Rash and nonspecific skin eruption 03/08/2020 Group A streptococcal infection 03/08/2020 Immunizations Name Administration Dates Next Due DTAP (<7y) 10/05/1999, 6,05/31/1995,03/22,01/23/1995 DTP-Hib 02/24/1996,03/22/1995,01/23/1995 Flu, Unspecified 01/12/2014 HEPA 08/26/2013 HIB, Unspecified 02/24/1996,03/22/1995, 5 HPV Quadrivalent 11/02/2008 HepB, Unspecified 08/28/1995,03/22/1995,01/23/19 95 Historical DTP/aP 05/31/1995 Influenza (H1N1) 02/02/2009 Influenza (IIV3) PF 01/23/2012,03/02/2011,2008 Influenza Vaccine >6 months,quad, PF ,11/20/2019,12/14/2015,01/27 Influenza,INJ,MDCK,PF,Quad >6mo(Flucelvax) 01/12/2019 MENINGOCOCCAL, HISTORIC, UNK OWN SEROGROUPS 08/26/2013 MMR 12/12/2019,12/28/1998,02/24/1996 Meningococcal Mcv4 Conjugate,unspecified 08/26/2013 OPV, trivalent, live 10/05/1999,05/30/18 96,03/22/1995,01/23 Poliovirus, inactivated (IPV) 10/05/1999 ,05/31/1995,03/22/1995,01/23 TDAP (Adacel,Boostrix) 08/09/2022,2019,09/01/2016,10/07 Varicella 08/26/2013,06/12/1996 Family History Relation Status Comments Father Alive Social History Tobacco Use Types Packs/Day Years Used Date Smoking Tobacco: Never Smokeless Tobacco: Never Alcohol Use Standard Drinks/Week Comments No 0 (1 standard drink = 0.6 oz pur e alcohol) PHQ-2 Answer Date Recorded PHQ-2 Score 0 09/12/2023 Adolescent Education Answer Date Record ed Getting School Help Needed Not on file 12/16 Food Insecurity Answer Date Recorded Within the past 12 months, d id you worry that your food would run out before you got money to buy more? No 09/12/2023 Within the past 12 months, d id the food you bought just not last and you didn t have money to get more? No 09/12/2023 Interpersonal Safety Answer Date Record ed Do you feel physically and e motionally safe where you currently live? Yes 09/12/2023 Within the past 12 months, h ave you been hit, slapped, kicked or otherwise physically hurt by someone? No 09/12/2023 Within the past 12 months, h ave you been humiliated or emotionally abused in other ways by your partner or ex-partner? No 09/12/2023 Comments Unknown Sex and Gender Information Value Date Recorded Sex Assigned at Not on file Legal Sex Female 3:14 AM ALL TERRAIN VEHICLE RACER Gender Identity Not on file Sexual Orientation Not on file Occupation Industry Job Start Date Job End Date Not on file Not on file Not on file Not on file Last Filed Vital Signs Vital Sign Reading Time Taken Comments Blood Pressure 112/70 09/12/2023 4:29 PM CDT Pulse 58 09/12/2023 4:29 PM CDT Temperature 36.7 C (98 F) 09/12/2023 4:29 PM CDT Respiratory Rate 19 09/12/2023 4:29 PM CDT Oxygen Saturation 100% 09/12/2023 4:29 PM CDT Inhaled Oxygen Concentration - - Weight 74.4 kg (164 lb) 09/12/2023 4:29 PM CDT Height 172.7 cm (5' 8) 09/12/2023 4:29 PM CDT Body Mass Index 24.94 09/12/2023 4:29 PM CDT Plan of Treatment Health Maintenance Due Date Last Done Comments ANNUAL REVIEW OF HM ORDERS 1994 HPV IMMUNIZATION (2 - 2-dose series) 05/05/2009 11/02/2008 HIV SCREENING 2009 HEPATITIS C SCREENING 2012 PAP 08/28/2020 08/28/2017 COVID-19 Vaccine ( season) 2023 07/20/2020, 06/30/2020 INFLUENZA VACCINE (#1) 2023 , 11/20/2019, 01/12/2019, Additional history exists YEARLY PREVENTIVE VISIT 12/29/2023 12/29/19 23, 09/25/2004, 10/19/2002, Additional history exists ADVANCE CARE PLANNING 09/11/2028 09/12/2023 DTAP/TDAP/TD IMMUNIZATION (10 - Td or Tdap) 08/09/2032 08/09/2022, 09/15/2019, 09/01/2016, Additional history exists RSV VACCINE (1 - 1-dose 75+ series) 2069 HEPATITIS B IMMUNIZATION Completed 996, 03/22/1995, 01/23/1995 MENINGITIS IMMUNIZATION Completed 08/26/2013, 08/26 PHQ-2 (once per calendar year) Completed 09/12/2023 Pneumococcal Vaccine: Pediatrics (0 to 5 Years) and At-Risk Patients (6 to 64 Years) Aged Out No longer eligible based on patient's age to complete this topic RSV MONOCLONAL ANTIBODY Aged Out No l onger eligible based on patient's age to complete this topic Insurance [employer] [id number] [place] [id number] OTHER [facility] Advance Directives For more information, please contact: [phone] * Full Code (Latest Code Status on File) Date Activated Date Inactivated Comments 03/11/2020 8:02 AM 03/21/2020 7:16 PM All basic and advanced life-sustaining interventions are performed as appropriate Question Answer Comments Code status determined by: Unable to dis cuss and no AD/POLST on file; continue PREVIOUSLY ORDERED code status * Full Code Date Activated Date Inactivated Comments 03/10/2020 6:14 PM 03/11/2020 8:02 AM All basic an d advanced life-sustaining interventions are performed as appropriate Question Answer Comments Code status determined by: Unable to det ermine; FULL CODE until documents or legal decision maker available * Full Code Date Activated Date Inactivated Comments 03/08/2020 5:49 AM 03/10/2020 6:05 PM All basic and advanced life-sustaining interventions are performed as appropriate Question Answer Comments Code status determined by: Discussion with genny nt/ legal decision maker Care Teams Burnisher And Bumper Relationship Specialty Start Date End Date Dragan Starks MD [address] [address] PCP - General Family Practice 07/24/13 Provider, MD Du Assigned PCP 10/01/23
--- OUTSIDE RECORDS SUMMARY | 2024-01-31 04:11 | XMS_ITS | Encounter Summary ---
Author Organization [facility] Address [address] [place] [address] Care Team Providers Care Editor School Photograph Name Role Phone No Primary/Referring, Phy Primary Care Provider Unavailable Encounter Details Date Type Department Care Team (Latest Contact Info) Description 05/17/1999 Orders Only Deborah Rivera MD [address] [place], [place] [address] Social History Tobacco Use Types Packs/Day Years [...] R/O COVID19 02/17/2020 02/17/2020 02/19/2020 7:53 AM COMMODITY MANAGER documented as of this encounter Care Teams Editor School Photograph Relationship Specialty Start Date End Date No Primary/Referring, Phy PCP - General 03/25/20 documented as of this encounter
--- OUTSIDE RECORDS SUMMARY | 2024-01-31 04:11 | XMS_ITS | Encounter Summary ---
Author Organization [facility] Address [address] [place] [address] Care Team Providers Care General Utility Maintenance Repairer Name Role Phone No Primary/Referring, Phy Primary Care Provider Unavailable Encounter Details Date Type Department Care Team (Latest Contact Info) Description 12/11/1995 Office Visit Deborah Rivera MD [address] [facility] [place] [address] Social History Tobacco Use Types Packs/Day Years Used Date Smoking Tobacco: Never Assessed Sex and Gender Information Value Date Recorded Sex Assigned at Not on file Gender Identity Not on file Sexual Orientation Not on file documented as of this encounter Progress Notes * Deborah Rivera MD - 12/11/1995 12:00 AM CDTS: Isabela is here because of a fever up to 103, that began yesterday. Has had cold symptoms for 2 weeks. Has been exposed to an afebrile illness at daycare. Her mother is also ill. No strep exposures. O: Alert, active though ill-appearing child. The right tympanic membrane; is dull, red. PE tube appears to be plugged, Left tympanic membrane; normal. Throat and lungs; clear. A: Right acute otitis media. P: Bactrim 1 tsp bid for 10 days, recheck back 3-4 weeks. cc: documented in this encounter Plan of Treatment Not on file documented as of this encounter Visit Diagnoses Not on filedocumented in this encounter Additional Health Concerns Infection Onset Date Last Indicated Resolved Time R/O COVID19 02/17/2020 02/17/2020 02/19/2020 7:53 AM STOCK SAW OPERATOR documented as of this encounter Care Teams General Utility Maintenance Repairer Relationship Specialty Start Date End Date No Primary/Referring, Phy PCP - General 03/25/20 documented as of this encounter
--- OUTSIDE RECORDS SUMMARY | 2024-01-31 04:11 | XMS_ITS | Encounter Summary ---
Author Organization [facility] Address [address] [place] [address] Care Team Providers Care Spring Bender Name Role Phone No Primary/Referring, Phy Primary Care Provider Unavailable Encounter Details Date Type Department Care Team (Latest Contact Info) Description 06/22/1996 Orders Only Deborah Rivera MD [address] [place], [place] [address] Social History Tobacco Use Types Packs/Day Years [...] R/O COVID19 02/17/2020 02/17/2020 02/19/2020 7:53 AM SIDE LASTER documented as of this encounter Care Teams Spring Bender Relationship Specialty Start Date End Date No Primary/Referring, Phy PCP - General 03/25/20 documented as of this encounter
--- OUTSIDE RECORDS SUMMARY | 2024-01-31 04:11 | XMS_ITS | Referral Summary ---
Author Organization [place] Address [facility] [place] [address] Care Team Providers Care Portal Developer Name Role Phone Dragan Starks MD Primary Care Provider [phone] ProviderDu MD Unavailable Unavailable Allergies Active Allergy Reactions Criticality Noted Date Comments Cephalosporins Hives High 12/14/2015 Medications Multiple Vitamins-[place] als (MULTIVITAMIN WOMEN) TABS Take 2 tablets [...] 10/05/1999 ,05/31/1995,03/22/1995,01/23 TDAP (Adacel,Boostrix) 08/09/2022,2019,09/01/2016,10/07 Varicella 08/26/2013,06/12/1996 Social History Tobacco Use Types Packs/Day Years [...] on file Legal Sex Female 3:14 AM TOWEL DISTRIBUTOR Gender Identity Not on file Sexual Orientation [...] 09/12/2023 4:29 PM CDT Plan of Treatment Not on file Insurance [employer] [facility] Advance Directives For more information, please contact: [phone] * Full Code (Latest Code Status on [...] genny nt/ legal decision maker Care Teams Portal Developer Relationship Specialty Start Date End Date Dragan Starks MD [address] [address] PCP - General Family Practice 07/24/13 ProviderDu MD Assigned PCP 10/01/23
--- OUTSIDE RECORDS SUMMARY | 2024-01-31 04:11 | XMS_ITS | Encounter Summary ---
Author Organization [facility] Address [address] [address] Care Team Providers Care Restorer Paper And Prints Name Role Phone No Primary/Referring, Phy Primary Care Provider Unavailable Reason for Visit * Reason Comments Visual Disturbance Encounter Details Date Type Department Care Team (Late st Contact Info) Description 11/05/2023 Telephone [facility] [address] [facility] [place] [address] Self-Referral, Patient, [place] [address] Visual Disturbance (/) Social History Tobacco Use Types Packs/Day Years Used Date Smoking Tobacco: Never Smokeless Tobacco: Never Comments:lives in a non-smok ing household Alcohol Use Standard Drinks/Week Comments No 0 (1 standard drink = 0.6 oz pur e alcohol) PHQ-2 Answer Date Recorded PHQ-2 Score 2 05/13/2020 Sex and Gender Information Value Date Recorded Sex Assigned at Not on file Gender Identity Not on file Sexual Orientation Not on file documented as of this encounter Nursing Notes * Jerrell Comer COA - 11/05/2023 10:49 AM CDT -Pt states that on Saturday she started noticing after images and VA appears splotchy when looking atwords. NVA is this concern, DVA seems okay. -Pt states that it feels like allergies in her eyes, like a glaze. She can blink it away. -Pt states that she only notices this when looking at a screen and can blink it away. -Pt denies injury, diplopia or pain. Last CE - 2021 clinic in [place]. Pt agreed to CE next week - provided address. Instructed pt to call us back with any new symptoms, VA changes, numbness, tingling, flashes, floaters. * Imelda Roland - 11/05/2023 10:38 AM CDT Symptoms Describe your symptoms (include right eye, left eye, or both eyes): BE, patient stated that her vision appears she is looking into a bright flash light, is seeing blotches in her vision and it is blurry. When did they start? Saturday Are symptoms worsening, or are they about the same since they began? About the same Have you experience anything similar to this before (if yes, add details)? No [/Appt Center: If this call is after 4 p.m., communicate to patient: If you do not receive a call back today, your message will be returned the next business day.] documented in this encounter Plan of Treatment Not on file documented as of this encounter Visit Diagnoses Not on filedocumented in this encounter Care Teams Restorer Paper And Prints Relationship Specialty Start Date End Date No Primary/Referring, Phy PCP - General 03/25/20 documented as of this encounter
--- OUTSIDE RECORDS SUMMARY | 2024-01-31 04:11 | XMS_ITS | Encounter Summary ---
Author Organization [facility] Address [address] [place] [address] Care Team Providers Care Talkback Host Name Role Phone No Primary/Referring, Phy Primary Care Provider Unavailable Encounter Details Date Type Department Care Team (Latest Contact Info) Description 01/18/1997 Orders Only Deborah Rivera MD [address] [facility], [place] [address] Social History Tobacco Use Types Packs/Day Years [...] R/O COVID19 02/17/2020 02/17/2020 02/19/2020 7:53 AM MECHANICAL SERVICE REPRESENTATIVE documented as of this encounter Care Teams Talkback Host Relationship Specialty Start Date End Date No Primary/Referring, Phy PCP - General 03/25/20 documented as of this encounter
--- OUTSIDE RECORDS SUMMARY | 2024-01-31 04:11 | XMS_ITS | Encounter Summary ---
Author Organization [facility] Address [address] [place] [address] Care Team Providers Care Centrifugal Station Operator Name Role Phone No Primary/Referring, Phy Primary Care Provider Unavailable Encounter Details Date Type Department Care Team (Latest Contact Info) Description 11/08/1997 Orders Only Deborah Rivera MD [address] [place], [place] [address] Social History Tobacco Use Types Packs/Day Years [...] R/O COVID19 02/17/2020 02/17/2020 02/19/2020 7:53 AM BREAST SURGEON documented as of this encounter Care Teams Centrifugal Station Operator Relationship Specialty Start Date End Date No Primary/Referring, Phy PCP - General 03/25/20 documented as of this encounter
--- OUTSIDE RECORDS SUMMARY | 2024-01-31 04:11 | XMS_ITS | Encounter Summary ---
Author Organization [facility] Address [address] [address] Care Team Providers Care Shot Fireman Name Role Phone No Primary/Referring, Phy Primary Care Provider Unavailable Encounter Details Date Type Department Care Team (Late st Contact Info) Description 02/15/2020 [facility] [address] [facility] [facility] [address] [place] [address] Sandro Tilley MD [address] [place] [address] Nipple pain (Primary Dx) Social History Tobacco Use Types Packs/Day Years Used Date Smoking Tobacco: Never Smokeless Tobacco: Never Comments:lives in a non-smok ing household Alcohol Use Standard Drinks/Week Comments No 0 (1 standard drink = 0.6 oz pur e alcohol) PHQ-2 Answer Date Recorded PHQ-2 Score 1 02/17/2020 Comments Yes Sex and Gender Information Value Date Recorded Sex Assigned at Not on file Gender Identity Not on file Sexual Orientation Not on file documented as of this encounter Plan of Treatment Not on file documented as of this encounter Visit Diagnoses Diagnosis Nipple pain- Primary Other sign and symptom in breast documented in this encounter Additional Health Concerns Infection Onset Date Last Indicated Resolved Time R/O COVID19 02/17/2020 02/17/2020 02/19/2020 7:53 AM SQL DATA ANALYST documented as of this encounter Care Teams Shot Fireman Relationship Specialty Start Date End Date No Primary/Referring, Phy PCP - General 03/25/20 documented as of this encounter
--- OUTSIDE RECORDS SUMMARY | 2024-01-31 04:11 | XMS_ITS | Encounter Summary ---
Author Organization [facility] Address [address] [place] [address] Care Team Providers Care Roof Bolter Name Role Phone No Primary/Referring, Phy Primary Care Provider Unavailable Encounter Details Date Type Department Care Team (Latest Contact Info) Description 11/08/1997 Office Visit Deborah Rivera MD [address] [place], [place] [id number] Social History Tobacco Use Types Packs/Day Years Used Date Smoking Tobacco: Never Assessed Sex and Gender Information Value Date Recorded Sex Assigned at Not on file Gender Identity Not on file Sexual Orientation Not on file documented as of this encounter Progress Notes * Deobrah Lay - 11/08/1997 12:00 AM CDTS: Isabela is here because of fever and vomiting that have been present for about 12 hours. She does go to daycare, and there have been some other children ill there with fevers. Her mother is not sure if they have been having vomiting. Isabela has not had any diarrhea. Her sister is not ill. She is currently taking no medications. O: Alert, though somewhat tired-appearing child. Both tympanic membranes are normal. There is some greenish nasal drainage present from both nares. Pharynx is slightly irritated-appearing but otherwise clear. There is small anterior, no posterior cervical adenopathy. Lung exam shows no rales, rhonchi or wheezing. There is some upper airway congestion noted on exam. Abdominal exam is normal. Skin exam shows no rashes, particularly no rashes on the palms or soles of her feet. A: Viral syndrome. P: Continue symptomatic therapy. Did discuss signs of dehydration. Recheck back as needed. documented in this encounter Plan of Treatment Not on file documented as of this encounter Visit Diagnoses Not on filedocumented in this encounter Additional Health Concerns Infection Onset Date Last Indicated Resolved Time R/O COVID19 02/17/2020 02/17/2020 02/19/2020 7:53 AM ACCOUNTING MACHINE MECHANIC documented as of this encounter Care Teams Roof Bolter Relationship Specialty Start Date End Date No Primary/Referring, Phy PCP - General 03/25/20 documented as of this encounter
--- OUTSIDE RECORDS SUMMARY | 2024-01-31 04:11 | XMS_ITS | Encounter Summary ---
Author Organization [facility] Address [address] [place] [address] Care Team Providers Care Travel Insurance Agent Name Role Phone No Primary/Referring, Phy Primary Care Provider Unavailable Encounter Details Date Type Department Care Team (Latest Contact Info) Description 11/13/1995 Office Visit Deborah Rivera MD [address] [facility] [place] [address] Social History Tobacco Use Types Packs/Day Years Used Date Smoking Tobacco: Never Assessed Sex and Gender Information Value Date Recorded Sex Assigned at Not on file Gender Identity Not on file Sexual Orientation Not on file documented as of this encounter Progress Notes * Deborah Rivera MD - 11/13/1995 12:00 AM CDTS: Isabela is here to have her ears checked. She had a little bit of a fever and was rubbing at her ears this morning. Her appetite has been good. She is also teething. Nasal congestion for four to five days. O: Alert, active and not ill appearing child. Both tympanic membranes are normal. PE tubes in place. Throat is clear. Some nasal congestion. Lungs are clear. A: URI. P: Symptomatic therapy. Recheck back as needed. 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
--- OUTSIDE RECORDS SUMMARY | 2024-01-31 04:11 | XMS_ITS | Encounter Summary ---
Author Organization [facility] Address [address] [place] [address] Care Team Providers Care Lining Closer Name Role Phone No Primary/Referring, Phy Primary Care Provider Unavailable Encounter Details Date Type Department Care Team (Latest Contact Info) Description 04/26/1997 Office Visit Deborah Rivera MD [address] [facility] [place], [place] [address] Social History Tobacco Use Types Packs/Day Years Used Date Smoking Tobacco: Never Assessed Sex and Gender Information Value Date Recorded Sex Assigned at Not on file Gender Identity Not on file Sexual Orientation Not on file documented as of this encounter Progress Notes * Deborah Lay - 04/26/1997 12:00 AM CSTS: Isablea is here with her mother because her mother has noticed that for about the last week and one half to two weeks Isabela has seemed somewhat tired. She has been going to bed alittle bit earlier about 1 hour before her usual bedtime. She seems alittle bit fussier and crabbier at the end of the day. Her appetite has been very good. She has had mild nasal congestion, mild cough. This does not seem to be a big problem. No exposures that the mother is aware of though the mother too has been feeling somewhat tired for the last couple of weeks. There have been no changes in the family's routine or in the day care routine except for her mother being gone alittle bit more in the evening. This appears to be a fairly minor change however. O: An alert, active, young lady. Both TM's are normal. Throat is clear. Mild nasal congestion present. There is anterior cervical adenopathy present. Lungs are clear. Abdominal exam is normal without any masses, megally or tenderness. CBC shows a WBC of 11,000. Hgb and Hct are WNL, her mono test is negative. A: Fatigue probably secondary to viral infection. P: Will continue to follow at this point. Check back if behavior not getting back to normal over the next week. cc: PILER documented in this encounter Plan of Treatment Not on file documented as of this encounter Visit Diagnoses Not on filedocumented in this encounter Additional Health Concerns Infection Onset Date Last Indicated Resolved Time R/O COVID19 02/17/2020 02/17/2020 02/19/2020 7:53 AM BALE PILER documented as of this encounter Care Teams Lining Closer Relationship Specialty Start Date End Date No Primary/Referring, Phy PCP - General 03/25/20 documented as of this encounter
--- OUTSIDE RECORDS SUMMARY | 2024-01-31 04:11 | XMS_ITS | Clinical Summary ---
Author [facility] Address [address] [place] [address] Care Team Providers Care Dish Room Worker Name Role Phone No Primary/Referring, Phy Primary Care Provider Unavailable Source Comments You are receiving this document as you are listed as the primary care provider,follow-up provider, or the patient has been referred to you for consultation.This is in compliance with the Medicare and[facility] Hospital[facility] EHR Incentive Program,which states Providers who transition their patient to another setting of careor provider of care or refers their patient to another provider of care shouldprovide summary care record for each transition of care or referral. [facility] Allergies Active Allergy Reactions Criticality Noted Date Comments Nifedipine Edema,generalized 02/17/2020 Edema of lower legs Cefdinir Hives High 12/28/2022 Cephalosporins Hives High 12/14/2015 Medications Medication Sig Dispensed Refills Start Date End Date Status vitamin-ferrous fumarate-folic acid (PRENATALPLUS) 27-1 MG tablet Take 1 Tablet by mouth daily. Active buPROPion (WELLBUTRIN XL) 300 MG 24 hour release tablet 10/09/2020 Active lurasidone (LATUDA) 20 MG tablet Take 1 Tablet (20 mg) by mouth three times a day. Active Active Problems Problem Noted Date Diagnosed Date Cervical cancer screening 09/04/2017 Overview (09/04/2017): Per visit note dated August 28, 2017: Hx of abnormal paps: no 2018 NILM 21 y.o. PLAN, per ASCCP Guidelines: pap test 08/2020 Abnormal uterine bleeding (AUB) 05/07/2017 Migraine with aura and witho ut status migrainosus, not intractable 05/07/2017 OCD (obsessive compulsive disorder) 06/21/2011 Overview (09/22/2019): [facility] Overview: Used to have severe panic in high school. Doing really well now. Major depressive disorder, single episode, moder ate 06/21/2011 Allergic rhinitis 09/25/2004 Overview (12/09/2014): [facility] Resolved Problems Problem Noted Date Diagnosed Date Resolved Date Acne 05/07/2017 02/10/2020 Major depressive disorder, s austin episode, moderate 05/07/2017 05/07/2017 Dysmenorrhea 05/07/2017 09/22/2019 Centralized Behavioral Health Case Management 08/30/19 12 11/27/2011 Overview (08/30/2011): Background: Diagnosis: Depression, Anxiety, OCD Current situation: The member has been seeing mental health providers and mother has noticed an improvement in her conditions and mood. Providers outside of [facility]: PCP is Dragan Starks at [facility], Psych is Dr. Nj Garcia at [facility] Psych[facility], Goals/Recommendations: Outpatient Behavioral Health Thread LasterDampener Operator Information: Anette Medina MA, [facility] [phone] Action Plan: Mother was interested in looking into support groups so support groups and other community resources were provided. Panic disorder without agoraphobia 06/21/2011 12/23/2012 Adjustment reaction 05/24/2004 06/21/19 12 Overview (12/09/2014): Epic Encounters Date Type Department Care Team Description 11/19/2023 2:40 PM CDT Office Visit [facility] [place] [address] [place] [address] Eleni Guadalupe, OD Examination of eyes and vision (Primary Dx); Hyperopia of both eyes; Visual disturbance 11/05/2023 Telephone [facility] [address] [place] [address] Self-Referral, Patient, MD Visual Disturbance (/) from Last 3 Months Immunizations Name Administration Dates Next Due 4vHPV (Gardasil) 11/02/2008 DTP 05/31/1995 DTP-Hib (Tetramune) 02/24/1996,03/22/1995,1994 DTaP 10/05/1999, 6,05/31/1995,03/22,01/23/1995 Flu Vac (3+ yrs) 01/23/2012,03/02/2011, 9 [id number] 02/02/2009 HepA, Unspecified Formulation 08/26/2013 HepB, Unspecified Formulation 08/28/1995, 996,01/23/1995 Hib, Unspecified Formulation 02/24/1996,03/22/18 96,01/23/1995 IPV (Polio) 10/05/1999, 6,03/22/1995,01/23 Influenza (Flucelvax), Prese rv Free QIV 01/12/2019 Influenza IIV4 (Quadrivalent ) 0.5mL ([id number]) 11/20/2019,12/14/2015 Influenza, Unspecified Formulation 01/27/2015,,02/02/2009 MMR 12/12/2019,12/28/1998,02/24/1996 Meningococcal MCV4, Unspecif ied Formulation 08/26/2013 OPV, Trivalent (Orimune or tOPV) 000,05/31/1995,03/22/1995,01/23 Pfizer Monovalent 12+ Purple Top 07/20/2020,0404/2020 Tdap 08/09/2022, 0,09/01/2016,10/07 Varicella 08/26/2013,06/12/1996 Family History Medical History Relation Name Comments Cataract Father Diabetes Father High Cholesterol Father Irritable Bowel Syndrome Father Irritable Bowel Syndrome Mother Crohn's Disease Sister Amblyopia/Strabismus Negative Family History Glaucoma Negative Family History Macular Degeneration Negative Family History Retinal Detachment Negative Family History Relation Name Status Comments Father Alive Mother Alive Maternal Grandmother Other 1 Other 2 Paternal Grandmother Sister Social History Tobacco Use Types Packs/Day Years [...] on file Sexual Orientation Not on file Last Filed Vital Signs Vital Sign Reading Time Taken Comments Blood Pressure 120/79 05/31/2023 9:04 AM CDT Pulse 89 05/31/2023 9:04 AM CDT Temperature 36.7 C (98.1 F) 05/31/2023 9:04 AM CDT Respiratory Rate 20 09/01/2016 1:58 PM CDT Oxygen Saturation 95% 05/31/2023 9:04 AM CDT Inhaled Oxygen Concentration - - Weight 71.7 kg (158 lb) 05/31/2023 9:04 AM CDT p t reported Height 171.7 cm (5' 7.6) 05/13/2020 11:15 AM CS T Body Mass Index 24.31 05/13/2020 11:15 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 Plan of Treatment Health Maintenance Due Date Last Done Comments Hep C Screening (Preventive Services) 1994 HPV Vaccine (2 - 2-dose series) 05/05/2009 11/02/2008 HIV Screening (Preventive Services) 2010 HepA (2 of 2 - Risk 2-dose series) 02/25/2014 08/26/2013 Adult Preventive Visit 08/29/2019 8, 09/25/2004, 10/19/2002, Additional history exists Cervical Cancer Screening 08/28/2020 08/28/2017 COVID-19 Vaccine ( season) 2023 07/20/2020, 06/30/2020 Influenza (#1) 2023 11/20/2019, 11/0 06/2018, 12/14/2015, Additional history exists DTaP/Tdap/Td (10 - Tdap) 08/09/2032 023, 09/15/2019, 09/01/2016, Additional history exists Zoster/Shingles (1 of 2) 2044 HepB Completed 08/28/1995, 03/11, 01/23/1995 Hib Completed 02/24/1996, 02/08, 03/22/1995, Additional history exists IPV (Polio) Completed 10/05/1999, 09/09, 05/31/1995, Additional history exists MCV4 Completed 08/26/2013 Varicella Completed 08/26/2013, 06/12/1996 Chlamydia Discontinued 03/08/2020, 10/2019, 08/28/2017, Additional history exists RSV Aged Out No longer eligi ble based on patient's age to complete this topic Pneumococcal Aged Out No longer eligi ble based on patient's age to complete this topic Procedures Procedure Name Priority Date/Time Associated Diagnosis Comments PAP TEST, ROUTINE Routine 08/28/2017 10: 11 AM CDT Screening for malignant neoplasm of cervix CHLAMYDIA & GC (14 YEARS & OLDER) Routine 08/28/2017 9:00 AM CDT Screen for STD (sexually transmitted disease) from Last 3 Months or Most Recently Relevant to Health Maintenance Results * Pap Test, Routine (08/28/2017 10:11 AM CDT) Cytology, Pap (NOTE) Franchise Broker Cytology Report Patient Name: ISABELA CHERY Taken: 08/28/2017 Received: 08/28/2017 Reported: 09/04/2017 Physician(s): LAAINA DUCKWORTH Source of Specimen Pap Test, Routine Cervical/Endocervi esequiel: Specimen Adequacy Satisfactory for evaluation. Endocervical component present. Final Cytologic Interpretation/Res ult NEGATIVE FOR INTRAEPITHELIAL LESION OR MALIGNANCY (NILM) *Electronically Signed Out By Marisa ROQUE(ASCP)* Marisa ROQUE(ASCP) Pap Smear History Date of Last Menstrual Period: 08/10/2017 Microscopic Description Microscopic examination is performed. [facility] Department of Pathology [address] [place] [address] [facility] 08/28/2017 10:1 1 AM CDT 08/28/2017 7:37 PM CDT Alaina Duckworth MD LAB_1 Performing Organization Address [facility] Co de Phone Number [facility] [phone] * Chlamydia & GC (08/28/2017 9:00 AM CDT) Source Endocervical [facility] Chlamydia Negative NEG [facility] Comment:Test Performed by Tr anscription Mediated Amplification GC (N. gonorrhoeae) Negative NEG [facility] Comment:Test Performed by Tr anscription Mediated Amplification 08/28/2017 9:00 AM CDT 08/28/2017 10:11 AM CDT Narrative [facility] - 08/28/2017 6:21 PM CDT Performed at [facility], [address] [place] [id number] Alaina Duckworth MD LAB_1 Performing Organization Address [facility] de Phone Number [facility] [phone] from Last 3 Months or Most Recently Relevant to Health Maintenance Care Teams Dish Room Worker Relationship Specialty Start Date End Date No Primary/Referring, Phy PCP - General 03/25/20
--- OUTSIDE RECORDS SUMMARY | 2024-01-31 04:11 | XMS_ITS | Encounter Summary ---
[facility] Organization [facility] Address [address] [place] [address] Care Team Providers Care Edge Bander Hand Name Role Phone No Primary/Referring, Phy Primary Care Provider Unavailable Encounter Details Date Type Department Care Team (Latest Contact Info) Description 12/15/1996 Orders Only Shaun Meeks MD [address] [place], [place] [id number] Social History Tobacco Use Types Packs/Day Years [...] COVID19 02/17/2020 02/17/2020 02/19/2020 7:53 AM SUPERVISOR WET POUR documented as of this encounter Care Teams Edge Bander Hand Relationship Specialty Start Date End Date No Primary/Referring, Phy PCP - General 03/25/20 documented as of this encounter
--- OUTSIDE RECORDS SUMMARY | 2024-01-31 04:11 | XMS_ITS | Encounter Summary ---
Author Organization [facility] Address [address] [place] [address] Care Team Providers Care Procurement Consultant Name Role Phone No Primary/Referring, Phy Primary Care Provider Unavailable Encounter Details Date Type Department Care Team (Latest Contact Info) Description 12/30/1995 Office Visit Deborah Rivera MD [address] [facility] [place], [place] [id number] Social History Tobacco Use Types Packs/Day Years Used Date Smoking Tobacco: Never Assessed Sex and Gender Information Value Date Recorded Sex Assigned at Not on file Gender Identity Not on file Sexual Orientation Not on file documented as of this encounter Progress Notes * Deborah Lay - 12/30/1995 12:00 AM CDTS: Isabela is here because of cold symptoms that have been present for two to three days. She has been having a lot of mattering in her eyes, though her eyes have not been glued shut. Her mother just wipes it out frequently during the day. She has not had any fevers. No drainage from her ears. O: Both tympanic membranes are normal with PE tubes in place. Throat is clear. Lungs clear. Both conjunctiva are very mildly irritated, not a lot of mattering is present at this time. A: URI. P: Discussed signs and symptoms of conjunctivitis, to give us a call if this occurs. Also spent time discussing Isabela's ear infections. At this point the plan is that if she gets another ear infection in the next three months would start initially with a broader spectrum antibiotic, probably Vantin as she took this well for her last ear infection. If she has an ear infection after three months would need to rediscuss this plan. Length of visit 20 minutes. 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
--- OUTSIDE RECORDS SUMMARY | 2024-01-31 04:11 | XMS_ITS | Encounter Summary ---
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
--- OUTSIDE RECORDS SUMMARY | 2024-01-31 04:11 | XMS_ITS | Encounter Summary ---
Author Organization [facility] Address [address], [place] [address] Care Team Providers Care Parts Remover Name Role Phone No Primary/Referring, Phy Primary Care Provider Unavailable Reason for Visit * Reason Comments Eye Exam Encounter Details Date Type Department Care Team (Late st Contact Info) Description 11/19/2023 2:40 PM CDT Office Visit [facility] [address] [address] Eleni Guadalupe, OD [address] [place] [address] Examination of eyes and vision (Primary Dx); Hyperopia of both eyes; Visual disturbance Social History Tobacco Use Types Packs/Day Years [...] as of this encounter Progress Notes * Eleni Guadalupe, OD - 11/19/2023 2:40 PM CDT Patient is alert and feels well. Medical history, current medications, and allergies reviewed. Routine eye exam. Assessment: ICD-10-CM 1. Examination of eyes and vision Z01.00 Refractive State, Determination Of - Bilateral 2. Hyperopia of both eyes H52.03 Refractive State, Determination Of - Bilateral 3. Visual disturbance H53.9 Refractive State, Determination Of - Bilateral Plan: 1-2. Discussed findings with patient. Discussed relationship between blurry vision at near and far-sided prescription findings today. Modified CycloRx given for reading glasses. Encouraged to wear for prolong near/computer work. 3. Patient confides that she had blotchy spots in her vision for about a week. Compared symptoms to after-image effect from a bright light. Uncertain if in one eye or the other. 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 Denies symptoms of a headache, light headedness, or dizziness associated with visual symtpoms. Reassured normal ocular health findings today. Symptoms possible vitreal floaters? Ocular migraine? Encouraged to monitor for symptoms and keep a log of details if they reoccur. RTC 1 year or sooner as needed. documented in this encounter Plan of Treatment Not on file documented as of this encounter Visit Diagnoses Diagnosis Examination of eyes and vision- Primary Hyperopia of both eyes Visual disturbance Unspecified visual disturbance documented in this encounter Care Teams Parts Remover Relationship Specialty Start Date End Date No Primary/Referring, Federico PCP - General 03/25/20 documented as of this encounter
--- OUTSIDE RECORDS SUMMARY | 2024-01-31 04:11 | XMS_ITS | Encounter Summary ---
Author Organization [facility] Address [address] [place] [address]. [place] [address] Care Team Providers Care [employer] Rep Name Role Phone Dragan Starks MD Primary Care Provider [phone] Provider, Du SPENCER Unavailable Unavailable Encounter Details Date Type Department Care Team (Late st Contact Info) Description 12/20/2020 Documentation Only INTERFACED REPORT Unknown, Provider Social History Tobacco Use Types Packs/Day Years Used Date Smoking Tobacco: Never Smokeless Tobacco: Never Alcohol Use Standard Drinks/Week Comments No 0 (1 standard drink = 0.6 oz pur e alcohol) Comments No Sex and Gender Information Value Date Recorded Sex Assigned at Not on file Legal Sex Female 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 No / Unsure 12/20/2020 5:24 PM CDT documented as of this encounter Plan of Treatment Not on file documented as of this encounter Visit Diagnoses Not on filedocumented in this encounter Care Teams [employer] Rep Relationship Specialty Start Date End Date Dragan Starks MD [facility] [address] [place] [address] PCP - General Family Practice 07/24/13 Provider, MD Du Assigned PCP 10/01/23 documented as of this encounter
--- OUTSIDE RECORDS SUMMARY | 2024-01-31 04:11 | XMS_ITS | Encounter Summary ---
Author Organization [facility] Address [address] [place] [address] Care Team Providers Care Sprinkler Helper Name Role Phone No Primary/Referring, Phy Primary Care Provider Unavailable Encounter Details Date Type Department Care Team (Latest Contact Info) Description 12/13/1995 Office Visit Shaun Meeks MD [address] [place], [place] [id number] Social History Tobacco Use Types Packs/Day Years Used Date Smoking Tobacco: Never Assessed Sex and Gender Information Value Date Recorded Sex Assigned at Not on file Gender Identity Not on file Sexual Orientation Not on file documented as of this encounter Progress Notes * Shaun Meeks MD - 12/13/1995 12:00 AM CDTS: The patient is a 12 month female presenting with a half day history of discharge from her left ear with continued fever to 102 within the last 3 days. The patient had a history of a mastitis on the left attributed to staph. Mother notes that she has a history of susceptibility to staph infections. Other children in day-care have experienced flu symptoms recently. Medications: Motrin, Bactrim. Allergies: None noted. O: Physical Exam: General-No apparent distress, afebrile. Current weight 22 lbs. HEENT: Head- atraumatic, normocephalic. Eyes- PERRL, EOMs intact, conjunctiva clear bilaterally. Ears: Left TM mildly erythematous; external ear without significant swelling or warmth. TM appears to be clear on the left with the tube intact without purulent discharge. No significant mastoid tenderness or inflammation. Nose- clear. Pharynx- erythematous. Lymph- negative. Neck- supple. Chest- clear. Abdomen- soft, benign. A: Follow-up left otitis media. History of mastoiditis. Pharyngitis. P: WBC 23,200 with Hgb 11.3, platelet count 395,000, differential - 60 polys, 36 lymphs, 4 CONTINUED... CONTINUED... mono. Rapid strep is negative. Culture was obtained of the discharge from the left external ear because of concern about potential for staph cellulitis. Dr. Soares of ENT was contacted. He suggested using Tobradex drops in addition to Vantin for staph coverage. Vantin 100 mg/ 5 cc, tsp b.i.d. x 10 days. As per follow-up call with parents on 12/13, no progression of inflammation involving the external ear or surrounding structures. cc: documented in this encounter Plan of Treatment Not on file documented as of this encounter Visit Diagnoses Not on filedocumented in this encounter Additional Health Concerns Infection Onset Date Last Indicated Resolved Time R/O COVID19 02/17/2020 02/17/2020 02/19/2020 7:53 AM CREDIT RISK MODELER documented as of this encounter Care Teams Sprinkler Helper Relationship Specialty Start Date End Date No Primary/Referring, Phy PCP - General 03/25/20 documented as of this encounter
--- OUTSIDE RECORDS SUMMARY | 2024-01-31 04:11 | XMS_ITS | Encounter Summary ---
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
--- OUTSIDE RECORDS SUMMARY | 2024-01-31 04:11 | XMS_ITS | Encounter Summary ---
Author Organization [facility] Address [address] [place] [address] Care Team Providers Care Housekeeping Aide Name Role Phone No Primary/Referring, Phy Primary Care Provider Unavailable Encounter Details Date Type Department Care Team (Latest Contact Info) Description 12/11/1995 Orders Only Deborah Rivera MD [address] [place], [place] [address] Social History Tobacco Use Types Packs/Day Years [...] R/O COVID19 02/17/2020 02/17/2020 02/19/2020 7:53 AM FUNERAL SERVICE APPRENTICE documented as of this encounter Care Teams Housekeeping Aide Relationship Specialty Start Date End Date No Primary/Referring, Phy PCP - General 03/25/20 documented as of this encounter
--- OUTSIDE RECORDS SUMMARY | 2024-01-31 04:12 | XMS_ITS | Encounter Summary ---
[facility] Organization [facility] Address [address] [place] [address] Care Team Providers Care Senior Infrastructure Architect Name Role Phone No Primary/Referring, Phy Primary Care Provider Unavailable Encounter Details Date Type Department Care Team (Latest Contact Info) Description 07/25/1995 Orders Only Shaun Meeks MD [address] [place], [place] [phone] Social History Tobacco Use Types Packs/Day Years [...] R/O COVID19 02/17/2020 02/17/2020 02/19/2020 7:53 AM MANAGER STONE documented as of this encounter Care Teams Senior Infrastructure Architect Relationship Specialty Start Date End Date No Primary/Referring, Phy PCP - General 03/25/20 documented as of this encounter
--- OUTSIDE RECORDS SUMMARY | 2024-01-31 04:12 | XMS_ITS | Encounter Summary ---
Author Organization [facility] Address [address], [place] [address] Care Team Providers Care Reuse Technician Name Role Phone No Primary/Referring, Phy Primary Care Provider Unavailable Encounter Details Date Type Department Care Team (Late st Contact Info) Description 08/04/1995 Orders Only [facility] Jareth Dawn MD Social History Tobacco Use Types Packs/Day Years [...] R/O COVID19 02/17/2020 02/17/2020 02/19/2020 7:53 AM DONOR RELATIONS ASSOCIATE documented as of this encounter Care Teams Reuse Technician Relationship Specialty Start Date End Date No Primary/Referring, Federico PCP - General 03/25/20 documented as of this encounter
--- OUTSIDE RECORDS SUMMARY | 2024-01-31 04:12 | XMS_ITS | Encounter Summary ---
Author Organization [facility] Address [address] [address] Care Team Providers Care Digital Marketing Consultant Name Role Phone No Primary/Referring, Phy Primary Care Provider Unavailable Encounter Details Date Type Department Care Team (Latest Contact Info) Description 06/27/1995 Orders Only Tonya Daley MD Social History Tobacco Use Types Packs/Day [...] R/O COVID19 02/17/2020 02/17/2020 02/19/2020 7:53 AM EMAIL ADMINISTRATOR documented as of this encounter Care Teams Digital Marketing Consultant Relationship Specialty Start Date End Date No Primary/Referring, Federico PCP - General 03/25/20 documented as of this encounter
--- OUTSIDE RECORDS SUMMARY | 2024-01-31 04:12 | XMS_ITS | Encounter Summary ---
Author Organization [facility] Address [address] [place] [address] Care Team Providers Care Rotary Helper Name Role Phone No Primary/Referring, Phy Primary Care Provider Unavailable Encounter Details Date Type Department Care Team (Latest Contact Info) Description 08/12/1995 Orders Only Deborah Rivera MD [address] [place], [place] [address] Social History Tobacco Use Types Packs/Day Years [...] R/O COVID19 02/17/2020 02/17/2020 02/19/2020 7:53 AM ROOM COOLER INSTALLER documented as of this encounter Care Teams Rotary Helper Relationship Specialty Start Date End Date No Primary/Referring, Phy PCP - General 03/25/20 documented as of this encounter
--- OUTSIDE RECORDS SUMMARY | 2024-01-31 04:12 | XMS_ITS | Encounter Summary ---
[facility] Address [address] [place] [address] Care Team Providers Care Prototype Engineer Name Role Phone No Primary/Referring, Phy Primary Care Provider Unavailable Encounter Details Date Type Department Care Team (Latest Contact Info) Description 08/01/1995 Office Visit Shaun Meeks MD [address] [place], [place] [phone] Social History Tobacco Use Types Packs/Day Years Used Date Smoking Tobacco: Never Assessed Sex and Gender Information Value Date Recorded Sex Assigned at Not on file Gender Identity Not on file Sexual Orientation Not on file documented as of this encounter Progress Notes * Shaun Meeks MD - 08/01/1995 12:00 AM CDTS: 8 month-old female presenting with 5 day history of cough associated with irritability last night. Patient has been febrile to at least 101.5 within the last day in addition to congestion and coryza. The patient is attending day care. Mother is experiencing URI symptoms at present. Medications- Septra. Allergies- none noted. O: Physical Exam: General-No apparent distress, although irritable. Current weight 18 lbs., 12 oz. HEENT: Head- atraumatic, normocephalic. Eyes- PERRL, EOMs intact, conjunctiva clear bilaterally. Ears- TMs mildly injected bilaterally with purulent discharge noted on the inferior aspect of the TM. Nose- mucoid discharge. Pharynx- erythematous. Lymph- shotty anterior cervical. Neck- supple. Chest- clear. A: Bilateral otitis media, URI, bronchitis. P: Rx. Vantin 100 per 5 cc's, tsp. po q 12 for 10 day course. Rx. Auralgan p.r.n. ear pain. Rx. Pediaprofen p.r.n. fever or irritability. cc: documented in this encounter Plan of Treatment Not on file documented as of this encounter Visit Diagnoses Not on filedocumented in this encounter Additional Health Concerns Infection Onset Date Last Indicated Resolved Time R/O COVID19 02/17/2020 02/17/2020 02/19/2020 7:53 AM FIELD SERVICES MANAGER documented as of this encounter Care Teams Prototype Engineer Relationship Specialty Start Date End Date No Primary/Referring, Phy PCP - General 03/25/20 documented as of this encounter
--- OUTSIDE RECORDS SUMMARY | 2024-01-31 04:12 | XMS_ITS | Encounter Summary ---
[facility] Address [address] [address] Care Team Providers Care Administrative Officer Name Role Phone No Primary/Referring, Phy Primary Care Provider Unavailable Encounter Details Date Type Department Care Team (Latest Contact Info) Description 08/22/1995 Orders Only Naif Pugh Jr. [facility] [address] [place], [place] [phone] Social History Tobacco Use Types Packs/Day Years [...] R/O COVID19 02/17/2020 02/17/2020 02/19/2020 7:53 AM COMMUNITY SUPPORT WORKER documented as of this encounter Care Teams Administrative Officer Relationship Specialty Start Date End Date No Primary/Referring, Phy PCP - General 03/25/20 documented as of this encounter
--- OUTSIDE RECORDS SUMMARY | 2024-01-31 04:12 | XMS_ITS | Encounter Summary ---
Author Organization [facility] Address [address] [address] Care Team Providers Care Lock Technician Name Role Phone No Primary/Referring, Phy Primary Care Provider Unavailable Encounter Details Date Type Department Care Team (Latest Contact Info) Description 05/16/1995 Orders Only Néstor Ware MD [address] [place] [address] Social History Tobacco Use Types Packs/Day Years [...] R/O COVID19 02/17/2020 02/17/2020 02/19/2020 7:53 AM MAINTENANCE MACHINE REPAIRER documented as of this encounter Care Teams Lock Technician Relationship Specialty Start Date End Date No Primary/Referring, Phy PCP - General 03/25/20 documented as of this encounter
--- OUTSIDE RECORDS SUMMARY | 2024-01-31 04:12 | XMS_ITS | Encounter Summary ---
Author Organization [facility] Address [address] [place] [address] Care Team Providers Care Ibm Websphere Portal Developer Name Role Phone No Primary/Referring, Phy Primary Care Provider Unavailable Encounter Details Date Type Department Care Team (Latest Contact Info) Description 08/28/1995 Orders Only Deborah Rivera MD [address] [place], [place] [phone] Social History Tobacco Use Types Packs/Day Years [...] R/O COVID19 02/17/2020 02/17/2020 02/19/2020 7:53 AM CONCRETE PIPE MAKING MACHINE OPERATOR documented as of this encounter Care Teams Ibm Websphere Portal Developer Relationship Specialty Start Date End Date No Primary/Referring, Phy PCP - General 03/25/20 documented as of this encounter
--- OUTSIDE RECORDS SUMMARY | 2024-01-31 04:12 | XMS_ITS | Encounter Summary ---
[facility] Address [address] [address] Care Team Providers Care Specialty Development Consultant Name Role Phone No Primary/Referring, Phy Primary Care Provider Unavailable Encounter Details Date Type Department Care Team (Latest Contact Info) Description 05/16/1995 Office Visit Néstor Ware MD [address] [place] [address] Social History Tobacco Use Types Packs/Day Years Used Date Smoking Tobacco: Never Assessed Sex and Gender Information Value Date Recorded Sex Assigned at Not on file Gender Identity Not on file Sexual Orientation Not on file documented as of this encounter Progress Notes * Néstor Ware MD - 05/16/1995 12:00 AM CSTS: Isabela is here for evaluation of a little bit of left lateral eye irritation. She has had this problem off and on for a few weeks. The left eye has been a little bit mattery/mucous today. She has had difficulties with sensitive skin, as does her mother, and is using a little bit of hydrocortisone cream for an area of rash on the right side of the neck. Isabela has been otherwise well, there have been no systemic symptoms. O: Isabela is an alert, active, and pleasant, good looking baby, who has just a hint of mucous material under the left lower lid, and at the left medial canthus. She has a little bit of irritated skin right at the left corner of her eye, and lateral to that and up and down from that, by about 2 or 3 mm with a few, small, reddish papules. A: Skin irritation. P: I am going to use some Tobrex eye drops, 2 drops to the affected eye qid for a couple of days and then prn. My sense is that it is basically a little tear duct stenosis with skin irritation from tears and mucous present. cc: T SALES MANAGER documented in this encounter Plan of Treatment Not on file documented as of this encounter Visit Diagnoses Not on filedocumented in this encounter Additional Health Concerns Infection Onset Date Last Indicated Resolved Time R/O COVID19 02/17/2020 02/17/2020 02/19/2020 7:53 AM FLEET SALES MANAGER documented as of this encounter Care Teams Specialty Development Consultant Relationship Specialty Start Date End Date No Primary/Referring, Phy PCP - General 03/25/20 documented as of this encounter
--- OUTSIDE RECORDS SUMMARY | 2024-01-31 04:12 | XMS_ITS | Encounter Summary ---
[facility] Address [address] [place] [address] Care Team Providers Care Configuration Specialist Name Role Phone No Primary/Referring, Phy Primary Care Provider Unavailable Encounter Details Date Type Department Care Team (Latest Contact Info) Description 1994 Office Visit Deborah Rivera MD [address] [place] [address] Social History Tobacco Use Types Packs/Day Years Used Date Smoking Tobacco: Never Assessed Sex and Gender Information Value Date Recorded Sex Assigned at Not on file Gender Identity Not on file Sexual Orientation Not on file documented as of this encounter Progress Notes * Deborah Rivera MD - 1995 12:00 AM CDTS: Isabela is here because of matteriness in her right eye, that's been present for 2 days. She was exposed to pink eye last week. Has not had any fevers, appetite has been good. Schedule has been as usual. O: Both tympanic membranes are normal. The right conjunctiva is slightly reddened, no matteriness. Left conjunctiva; normal. A: Mild conjunctivitis. P: Sulamyd ophthalmic, 1 drop 3-4 times a day for the next 2-3 days. Recheck if not clearing. cc: documented in this encounter Plan of Treatment Not on file documented as of this encounter Visit Diagnoses Not on filedocumented in this encounter Additional Health Concerns Infection Onset Date Last Indicated Resolved Time R/O COVID19 02/17/2020 02/17/2020 02/19/2020 7:53 AM EHS TEACHER documented as of this encounter Care Teams Configuration Specialist Relationship Specialty Start Date End Date No Primary/Referring, Phy PCP - General 03/25/20 documented as of this encounter
--- OUTSIDE RECORDS SUMMARY | 2024-01-31 04:12 | XMS_ITS | Encounter Summary ---
Author Organization [facility] Address [address] [place] [address] Care Team Providers Care Business Analysis Specialist Name Role Phone No Primary/Referring, Phy Primary Care Provider Unavailable Encounter Details Date Type Department Care Team (Latest Contact Info) Description 07/25/1995 Office Visit Shaun Meeks MD [address] [place], [place] [phone] Social History Tobacco Use Types Packs/Day Years Used Date Smoking Tobacco: Never Assessed Sex and Gender Information Value Date Recorded Sex Assigned at Not on file Gender Identity Not on file Sexual Orientation Not on file documented as of this encounter Progress Notes * Shaun Meeks MD - 07/25/1995 12:00 AM CDTS: The patient is an 8 month female presenting with a one day history of congestion with slight fever, difficulty sleeping, and cough. The patient did not return for follow-up after treatment for otitis media recently. Medications: Motrin. Septra: DC'd x one week. Allergies: None noted. Physical Exam: General-No apparent distress although irritable. HEENT: Head- atraumatic, normocephalic. Eyes- PERRL, EOMs intact, conjunctiva clear bilaterally. Ears- TMs dull bilaterally. Nose- clear. Pharynx- benign. Lymph- negative. Neck- supple. Chest- clear. Abdomen- soft, benign. A: Follow-up otitis media. URI. P: Tympanogram reveals flat line response bilaterally. Septra 1 tsp b.i.d. x 10 days. Reassess 3-4 weeks. PediaProfen p.r.n. fever or irritability. cc: documented in this encounter Plan of Treatment Not on file documented as of this encounter Visit Diagnoses Not on filedocumented in this encounter Additional Health Concerns Infection Onset Date Last Indicated Resolved Time R/O COVID19 02/17/2020 02/17/2020 02/19/2020 7:53 AM ADDICTION MEDICINE PHYSICIAN documented as of this encounter Care Teams Business Analysis Specialist Relationship Specialty Start Date End Date No Primary/Referring, Phy PCP - General 03/25/20 documented as of this encounter
--- OUTSIDE RECORDS SUMMARY | 2024-01-31 04:12 | XMS_ITS | Encounter Summary ---
Author Organization [facility] Address [address] [place] [address] Care Team Providers Care Molding Room Supervisor Name Role Phone No Primary/Referring, Phy Primary Care Provider Unavailable Encounter Details Date Type Department Care Team (Latest Contact Info) Description 1994 Orders Only Deborah Rivera MD [address] [place], [place] [address] Social History Tobacco Use Types Packs/Day Years [...] R/O COVID19 02/17/2020 02/17/2020 02/19/2020 7:53 AM ECHO TECHNICIAN documented as of this encounter Care Teams Molding Room Supervisor Relationship Specialty Start Date End Date No Primary/Referring, Phy PCP - General 03/25/20 documented as of this encounter
--- OUTSIDE RECORDS SUMMARY | 2024-01-31 04:12 | XMS_ITS | Encounter Summary ---
[facility] Address [address] [place] [address] Care Team Providers Care Processing Clerk Name Role Phone No Primary/Referring, Phy Primary Care Provider Unavailable Encounter Details Date Type Department Care Team (Latest Contact Info) Description 07/04/1995 Office Visit Shaun Meeks MD [address] [place] [address] Social History Tobacco Use Types Packs/Day Years Used Date Smoking Tobacco: Never Assessed Sex and Gender Information Value Date Recorded Sex Assigned at Not on file Gender Identity Not on file Sexual Orientation Not on file documented as of this encounter Progress Notes * Shaun Meeks MD - 07/04/1995 12:00 AM CDTS: 7 month-old female presenting with 1-2 week history of clear to green nasal discharge with fever to 101.3 this a.m. She otherwise has remained afebrile. There has been slight cough and some increase in irritability. Patient has been sleeping OK. Mom has been treated recently for otitis media associated with URI. Medications- Tylenol 8:30 a.m. Allergies none noted. O: Physical Exam: General-No apparent distress, slightly irritable. HEENT: Head- atraumatic, normocephalic, anterior fontanelle normotensive. Eyes- PERRL, EOMs intact, conjunctiva clear bilaterally. Ears- TMs clear with letter reflex intact bilaterally. Nose- mucous discharge. Pharynx- erythematous. Lymph- negative. Neck- supple. Chest- clear. Abdomen- soft, benign. A: Persistent URI. P: Rx. Septra 1 tsp. bid for 10 day course. Topical Nizoral cream to be applied to diaper rash. Rx. Pediacare 1.2 cc's po qid prn persistent congestion. cc: documented in this encounter Plan of Treatment Not on file documented as of this encounter Visit Diagnoses Not on filedocumented in this encounter Additional Health Concerns Infection Onset Date Last Indicated Resolved Time R/O COVID19 02/17/2020 02/17/2020 02/19/2020 7:53 AM LAB PACK CHEMIST documented as of this encounter Care Teams Processing Clerk Relationship Specialty Start Date End Date No Primary/Referring, Phy PCP - General 03/25/20 documented as of this encounter
--- OUTSIDE RECORDS SUMMARY | 2024-01-31 04:12 | XMS_ITS | Encounter Summary ---
[facility] Address [address] [place] [address] Care Team Providers Care Volunteer Recruitment Coordinator Name Role Phone No Primary/Referring, Phy Primary Care Provider Unavailable Encounter Details Date Type Department Care Team (Latest Contact Info) Description 08/01/1995 Orders Only Shaun Meeks MD [address] [place], [place] [phone] Social History Tobacco Use Types Packs/Day Years [...] R/O COVID19 02/17/2020 02/17/2020 02/19/2020 7:53 AM MUSIC TYPOGRAPHER documented as of this encounter Care Teams Volunteer Recruitment Coordinator Relationship Specialty Start Date End Date No Primary/Referring, Phy PCP - General 03/25/20 documented as of this encounter
--- OUTSIDE RECORDS SUMMARY | 2024-01-31 04:12 | XMS_ITS | Encounter Summary ---
[facility] Address [address] [place] [address] Care Team Providers Care Bag Machine Set Up Operator Name Role Phone No Primary/Referring, Phy Primary Care Provider Unavailable Encounter Details Date Type Department Care Team (Latest Contact Info) Description 07/04/1995 Orders Only Shaun Meeks MD [address] [place], [place] [phone] Social History Tobacco Use Types Packs/Day Years [...] COVID19 02/17/2020 02/17/2020 02/19/2020 7:53 AM FARM SPECIALIST documented as of this encounter Care Teams Bag Machine Set Up Operator Relationship Specialty Start Date End Date No Primary/Referring, Phy PCP - General 03/25/20 documented as of this encounter
--- OUTSIDE RECORDS SUMMARY | 2024-01-31 04:12 | XMS_ITS | Encounter Summary ---
Author Organization [facility] Address [address] [place] [address] Care Team Providers Care Latex Ribbon Machine Operator Name Role Phone No Primary/Referring, Phy Primary Care Provider Unavailable Encounter Details Date Type Department Care Team (Latest Contact Info) Description 1994 Office Visit Deborah Rivera MD [address] [place] [address] Social History Tobacco Use Types Packs/Day Years Used Date Smoking Tobacco: Never Assessed Sex and Gender Information Value Date Recorded Sex Assigned at Not on file Gender Identity Not on file Sexual Orientation Not on file documented as of this encounter Progress Notes * Deborah Rivera MD - 1995 12:00 AM CDTS: Isabela is here for a weight check. She is now 4 days old. She is breast feeding. Her mother reports that her milk has come in and she seems to be nursing well. O: Weight today is 7# 10oz. Discharge weight was 7# 12oz, weight 7# 13oz. Child is slightly jaundice appearing. Liver edge is palpable and not enlarged. A: Normal weight check, mild jaundice P: Discussed jaundice. If they have any concerns they will bring her in the next couple of days to be rechecked. Otherwise F/U at her 2 week exam. cc: documented in this encounter Plan of Treatment Not on file documented as of this encounter Visit Diagnoses Not on filedocumented in this encounter Additional Health Concerns Infection Onset Date Last Indicated Resolved Time R/O COVID19 02/17/2020 02/17/2020 02/19/2020 7:53 AM TECHNICAL DIRECTOR documented as of this encounter Care Teams Latex Ribbon Machine Operator Relationship Specialty Start Date End Date No Primary/Referring, Phy PCP - General 03/25/20 documented as of this encounter
[2024-01-31 04:21] LABS: Basophils Absolute Auto 0.04 K/uL (0.00-0.30); Basophils Percent Auto 0.5 % (0.0-3.0); Eosinophils Percent Auto 1.2 % (0.0-7.0); Hematocrit 40.7 % (33.0-51.0); Hemoglobin* 13.7 gm/dL (12.0-16.0); Immature Granulocytes Abs Auto 0.06 K/uL (0.00-0.30); Immature Granulocytes Pct Auto 0.7 %; Lymphocytes Absolute Auto 2.12 K/uL (0.90-2.90); Lymphocytes Percent Auto 25.7 % (20-44); Mean Corpuscular HGB Conc 34 gm/dL (32-36); Mean Corpuscular Hemoglobin 30 pg (26-34); Mean Corpuscular Volume 88 fL (80-100); Monocytes Percent Auto 6.2 % (0.0-11.0); Neutrophils Absolute Auto 5.42 K/uL (1.7-7.0); Neutrophils Percent Auto 65.7 % (42.0-72.0); Platelet Count* 352 K/uL (140-440); RDW Coefficient of Variation % 11.7 % (11.5-15.5); Red Blood Count 4.65 m/uL (4.00-5.20); White Blood Count* 8.25 K/uL (4.50-11.00)
[2024-01-31 04:23] LABS: Slide Review Reflex No
[2024-01-31 04:27] LABS: Chloride* 106 mmol/L (96-114); Potassium* 4.1 mmol/L (3.6-5.1); Sodium* 137 mmol/L (135-149)
[2024-01-31 04:30] LABS: Creatinine* 0.8 mg/dL (0.5-1.5); Estimated Glomerular Filt Rate 102 ml/min
[2024-01-31 04:31] LABS: Anion Gap 7 mEq/L (7-15); Blood Urea Nitrogen* 12 mg/dL (5-24); Calcium* 8.9 mg/dL (8.4-10.6); Carbon Dioxide* 24 mmol/L (20-32); Glucose* 97 mg/dL (60-115)
== END 2024-01-31 05:18 | disposition home or self-care (01) ==
LOC: ED 04:09
PROVIDERS: Emergency Provider Internal Medicine
DX: O20.9 Hemorrhage in early pregnancy, unspecified (principal)
CPT/HCPCS: 36415; 80048; 84702; 85025; 86900; 86901; 99283; 99284